=== PATIENT | male | born 1945 | race Caucasian/White ===

== ENCOUNTER 2019-11-08 07:13 | Emergency (ER) | payer MEDICARE, SELFPAY ==
[2019-11-08 07:22] VITALS: BP 133/67; PULSE 75; RESP 16; TEMP 36.8; O2SAT 92; BMI 26.9
--- NOTE | 2019-11-08 07:23 | ED_ITS ---
HPI - URI/Sore Throat General Chief Complaint: Upper Respiratory Symptoms Stated Complaint: cold, cough no sleep for 3 weeks Time Seen by Provider: 11/08/19 07:16 Source: patient Mode of arrival: Ambulatory Limitations: no limitations History of Present Illness HPI Narrative: 74-year-old male nonsmoker with history of hypertension presents with a chief complaint about 3 weeks worth cough which has got to the point where he has trouble sleeping period he has had episodes of subjective fever but nothing persistent or measured. He does complain of some runny nose and nasal congestion. He denies any nausea, vomiting or diarrhea. He denies body aches or joint pain. His has similar symptoms. He does take lisinopril but he has taken it for at least 10 years with no change in dosing MD Complaint: fever, cough, rhinorrhea and nasal congestion Onset (ago): week(s) Duration: constant Severity: moderate Relieving factors: nothing Exacerbating factors: nothing Description of mucous: clear Able to tolerate fluids by mouth: Yes Context: sick contacts Treatments prior to arrival: cold medicine Related Data Previous Rx's Medication Instructions Recorded doxycycline monohydrate 100 mg PO BID 10 Days #20 cap 11/08/19 promethazine-codeine 5 ml PO Q4-6H PRN #473 ml 11/08/19 Allergies Allergy/AdvReac Type Severity Reaction Status Date / Time No Known Drug Allergies Allergy Verified 11/08/19 07:22 Review of Systems Constitutional Constitutional: Denies chills, Denies fatigue, Denies fever(s), Denies frequent falls, Denies lethargy and Denies weakness Eyes Eyes: Denies change in vision, Denies eye discharge, Denies irritation and Denies loss of vision ENT Ears, Nose, Mouth, and Throat: Denies change in voice, Denies dizziness, Reports nasal congestion, Reports nasal discharge, Denies neck pain, Denies sore throat and Denies throat swelling Cardiovascular Cardiovascular: Denies chest pain, Denies irregular heart rhythm, Denies lightheadedness, Denies palpitations, Denies dyspnea, Denies dyspnea on exertion and Denies orthopnea Respiratory Respiratory: Reports cough, Denies dyspnea, Denies dyspnea on exertion and Denies wheezing Gastrointestinal Gastrointestinal: Denies abdominal pain, Denies change in bowel habits, Denies diarrhea, Denies nausea and Denies vomiting Genitourinary Genitourinary: Denies hematuria, Denies flank pain, Denies urinary incontinence and Denies urinary urgency Musculoskeletal Musculoskeletal: Denies back pain, Denies muscle weakness, Denies neck pain, Denies numbness and Denies tingling Integumentary/Breasts Skin/Breast: Denies pruritus, Denies erythema, Denies rash and Denies wounds Neurologic Neurologic: Denies behavioral changes, Denies confusion, Denies dizziness, Denies frequent falls, Denies loss of vision, Denies numbness, Denies tingling and Denies weakness Psychiatric Psychiatric: Denies anxiety, Denies behavioral changes, Denies confusion, Denies depression, Denies homicidal ideation and Denies suicidal ideation Endocrine Endocrine: Denies fatigue, Denies flushing and Denies palpitations Hematologic/Lymphatic Hematologic/Lymphatic: Denies easy bruising Allergic/Immunologic Allergic/Immunologic: Denies urticaria, Denies throat swelling and Denies wheezing Patient History Social History Smoking Status: Never smoker Smoking Status: Never smoker Exam Narrative Exam Narrative: GEN: 74-year-old male appears stated age, AOx3 and in mild distress EYES: Pupils are equal, round, and reactive to light and accommodation. Extraoccular muscles are intact bilaterally. There is no subconjunctival hemorrhage or exudate. ENT: Clear nasal drainage and congestion bilaterally, clear postnasal drip no pharyngeal erythema or exudate CHEST: Lungs are clear to auscultation bilaterally and free of wheezes, rales, or rhonchi. Heart rate is regular rhythm, there are no murmurs, clicks, rubs, or gallops. There is no chest wall tenderness. ABD: Abdomen is soft and nontender. There is no guarding or rebound. Bowel sounds are normal in all 4 quadrants. There is no mass or organomegaly. EXT: Full painless ROM of all extremities with no loss of sensation or strength. SKIN: Warm, pink, and dry. No erythema or rash Initial Vital Signs Initial Vital Signs: Vital Signs Temperature 98.3 F 11/08/19 07:22 Pulse Rate 75 11/08/19 07:22 Respiratory Rate 16 11/08/19 07:22 Blood Pressure 133/67 11/08/19 07:22 Pulse Oximetry 92 11/08/19 07:22 Course Orders Ordered: ED Orders 11/08/19 07:23 XR chest 2V Stat Vital Signs Vital signs: Vital Signs - 8 hr 11/08/19 07:22 11/08/19 07:58 Temperature 98.3 F Pulse Rate 75 63 Respiratory Rate 16 Blood Pressure 133/67 Pulse Oximetry 92 98 MDM - URI/Sore Throat Imaging Data Chest x-ray: Radiologist's Impression: [address] [place] [id number] XRay Report Signed Patient: Martin Guevara WMR#: [id number] : [id number]:[id number] Age/Sex: 74 / MDate of Service: 11/08/19 Loc: ED Accession Number: [id number] Procedure: XR chest 2V Ordering Provider: Junior Mcgovern D.O. PROCEDURE: XR CHEST 2V INDICATIONS: cough x3 weeks, feeling sick TECHNIQUE: 2 views of the chest were acquired. COMPARISON: None. FINDINGS: Surgical changes and devices: None. Lungs and pleura: Lungs are clear. No pleural effusions or pneumothorax. Minor biapical pleural plaquing. Mediastinum: Mediastinal contours are normal. Heart size is normal. Bones and chest wall: No suspicious bony abnormalities. 3 discrete ovoid densities project over the left lower chest, likely within the anterior chest wall soft tissue.. IMPRESSION: 1. No acute cardiopulmonary disease. 2. Radiodensities in the anterior left chest wall, potentially sebaceous cysts. Correlate clinically. Dictated by: Yesy Donovan M.D. on 11/08/2019 at 8:22 Approved by: Yesy Donovan M.D. on 11/08/2019 at 8:28 Discharge Plan Departure Patient Disposition: Home Clinical Impression: Atypical pneumonia Discharge Date/Time: 11/08/19 07:59 Instructions: DI for Atypical Pneumonia Activity Restrictions/Additional Instructions: *You have been diagnosed with [ atypical pneumonia ] *What to do: *Take medications as directed: Two prescriptions have been electronically transmitted to [facility] in [place]. Also, over the counter antihistamines will help dry your secretions and may help your cough. *Follow up with your primary care provider in 2-3 days, call for an appointment. Let them know you were seen in the Emergency Department and that we ask that you be seen in follow up *Return to ER if you should have any new, worsening or concerning symptoms Radiographic study has been interpreted by an emergency physician. The official diagnosis by radiology will be performed within the next 24 hours and should there be any change in outcome we will notify you of how to proceed. Prescriptions: New promethazine-codeine 6.25-10 mg/5 mL syrup 5 ml PO Q4-6H PRN (Reason: cough) Qty: 473 RF: 0 doxycycline monohydrate 100 mg capsule 100 mg PO BID 10 Days Qty: 20 RF: 0
[2019-11-08 07:58] VITALS: PULSE 63; O2SAT 98
== END 2019-11-08 07:59 | disposition home or self-care (01) ==
PROVIDERS: Emergency Provider Emergency Medicine
DX: J18.9 Pneumonia, unspecified organism (principal)
CPT/HCPCS: 71046; 99283

== ENCOUNTER 2019-12-30 09:44 | Emergency (ER) | payer MEDICARE, SELFPAY ==
[2019-12-30 09:50] VITALS: BP 125/66; PULSE 47; RESP 18; TEMP 36.4; O2SAT 99; BMI 26.9
--- NOTE | 2019-12-30 10:14 | ED.FALL ---
HPI - Fall General Chief Complaint: Fall Stated Complaint: fall this morning,light headed Time Seen by Provider: 12/30/19 10:02 Source: patient Mode of arrival: Ambulatory Limitations: no limitations History of Present Illness HPI Narrative: 74-year-old male. Not on anticoagulation is remodeling a house. He states that he stepped wrong today and fell through the floor the house falling forward hitting his head. He had no loss of consciousness however was lightheaded and dizzy afterwards. That has since resolved. No headache. Does have a cut above his left eye. Last tetanus shot was approximately 1 year ago. No other injuries reported from the event. Related Data Previous Rx's Medication Instructions Recorded promethazine-codeine 5 ml PO Q4-6H PRN #473 ml 11/08/19 Allergies Allergy/AdvReac Type Severity Reaction Status Date / Time No Known Drug Allergies Allergy Verified 12/30/19 09:50 Review of Systems Constitutional Constitutional: Denies fever(s), Denies frequent falls and Denies headache(s) Eyes Eyes: Denies blurry vision ENT Ears, Nose, Mouth, and Throat: Denies headache(s) Musculoskeletal Musculoskeletal: Denies back pain, Denies myalgias and Denies arthralgias Integumentary/Breasts Comments: Cut above left eye Neurologic Neurologic: Denies frequent falls and Denies headache(s) Comments: Dizziness after fall this has resolved Hematologic/Lymphatic Hematologic/Lymphatic: Denies easy bleeding and Denies easy bruising Patient History Surgical History No pertinent past surgical history (Acute) Social History Smoking Status: Never smoker Smoking Status: Never smoker Substance Use Type: does not use Exam Initial Vital Signs Initial Vital Signs: Vital Signs Temperature 97.5 F L 12/30/19 09:50 Pulse Rate 47 L 12/30/19 09:50 Respiratory Rate 18 12/30/19 09:50 Blood Pressure 125/66 12/30/19 09:50 Pulse Oximetry 99 12/30/19 09:50 Const General: cooperative, comfortable, well developed and well groomed HENMT Head: laceration Eyes Pupils: PERRL EOM: EOM intact bilaterally Resp Effort & Inspection: normal respiratory effort Cardio Rate: regular rate Skin Other: 2 cm laceration above left eye Neuro General: alert, awake and oriented x3 Cranial Nerves: CN's II-XI intact bilaterally Cognition: normal cognition Speech: speech normal Gait: normal gait Extrem General: normal to inspection and capillary refill normal Psych Appearance: grossly normal and well kempt Procedures Laceration Repair Laceration 1: Site: face Side (If applicable): left Size (cm): 3 Description: linear Depth: simple, single layer Local Anesthetic: with bicarb Amount of anesthesia used (mL): 4 Pre-repair: wound explored Skin layer closed with: nylon Size (cm): 4-0 Number of sutures: 5 Technique: simple, interrupted Scores GCS Kiersten coma scale eye opening: Spontaneous Kiersten coma scale verbal response: Orientated Kiersten coma scale motor response: Obey commands Kiersten coma scale total score: 15 Nexus Score for C-Spine Focal Neurologic deficit present: No Midline spinal tenderness present: No Altered level of conciousness present: No Intoxication present: No Distracting Injury Present: No Nexus Criteria for C-spine: 0 Course Orders Ordered: Discontinued Medications Bacitracin (Bacitracin) 1 applic TOP NOW ONE Stop: 12/30/19 10:37 Lidocaine/Sodium Bicarbonate (Buffered Lidocaine 10 Ml Syr) 10 ml INJ NOW ONE Stop: 12/30/19 10:18 Vital Signs Vital signs: Vital Signs - 8 hr 12/30/19 09:50 Temperature 97.5 F L Pulse Rate 47 L Respiratory Rate 18 Blood Pressure 125/66 Pulse Oximetry 99 MDM - Fall MDM Narrative Medical decision making narrative: Alert oriented x3, GCS 15, no headache, has a cut above his left eye otherwise has no other findings on his exam. The cut was closed as described above. He is not on anticoagulation. I feel we could hold on any radiologic studies for now. Patient was given care instructions and return precautions. He expressed understanding and agreement. Discharge Plan Departure Patient Disposition: Home Clinical Impression: Laceration Instructions: DI for Laceration Repair -- Simple Activity Restrictions/Additional Instructions: You can use topical antibiotic ointment. You can cover with a bandage as needed. The stitches do need to be removed in 7-10 days. You can also ice the area. Expect some swelling and or bruising around her left eye. Return to the emergency department for any new or worsening symptoms Prescriptions: No Action promethazine-codeine 6.25-10 mg/5 mL syrup 5 ml PO Q4-6H PRN (Reason: cough) Qty: 473 RF: 0
[2019-12-30] MEDS: LIDO 1%/SOD BICARB 8.4% (10ML) 10 ML SYRINGE INJ (10:20)
[2019-12-30] MEDS: BACITRACIN OINT 0.9 GM PCKT 1 APPLIC TOP (10:58)
== END 2019-12-30 11:03 | disposition home or self-care (01) ==
PROVIDERS: Emergency Provider Emergency Medicine
DX: S01.81XA Laceration without foreign body of other part of head, initial encounter (principal); W19.XXXA Unspecified fall, initial encounter
CPT/HCPCS: 12013; 99281; 99283

== ENCOUNTER 2021-10-27 06:30 | Day surgery (SDC) | payer MEDICARE, SELFPAY ==
--- NOTE | 2021-10-26 16:12 | PM.PREOP ---
Pre-operative Note COVID-19 COVID-19 status: Negative Interval Note History & Physical reviewed/Exam performed by Physician: Yes Changes to H&P: No H&P completed within 30 days and has changed as indicated here:: No symptoms. Lab not open to report Covid test so rapid testing done prior to surgery.
--- NOTE | 2021-10-26 16:12 | PM.OP.1 ---
Operative Date/Time/Diagnoses Date of procedure: 10/26/21 Time of procedure: 07:45 Procedure & Clinicians Procedure: Preoperative diagnoses: 1. Right complex surgery with use of capsular dye. 2. Mature or advanced nuclear sclerotic and cortical cataract with poor visibility of the anterior capsule increasing surgical risks of complications. 3. Hypertension 4. Hearing loss 5. Bradycardia 6. Acid reflux Postoperative diagnoses: 1.Right Complex surgery with use of capsular dye, 2. Placement of a posterior chamber intraocular lens implant. Surgeon: Carol Dee MD Complications: none Specimen: None Implant: DIBOO+19.5, -2.00 target Blood loss: None Anesthesia: Retrobulbar with monitored standby. Description of procedure: Dictated by: Carol Dee MD Post operative diagnoses: 1. Right cataract removed with use of capsular dye . 2. Placement of a posterior chamber intraocular lens. Procedure: Phacoemulsification with posterior chamber intraocular lens implant Surgeon: Carol Dee MD Blood loss: None Anesthesia: Retrobulbar with monitored standby Description of procedure: Patient has presented with decreased vision due to cataract which is affecting activities of daily living especially driving. 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 Patient-2.00 target is chosen after long discussion. The patient wants surgery to improve vision. He understands the extra risk of surgery during the COVID-19 epidemic and wished to proceed. The patient has tested negative for active COVID-19 virus within 72 hours of the procedure. Due to poor red reflex and diffuse cortical changes he will require capsular dye for this surgery. The patient was taken to the operating room and given IV sedation. A retrobulbar block consisting of 6 cc of 2% xylocaine without epinephrine mixed half and half with 0.5% Marcaine with 1 cc of hyaluronidase added is placed between the medial and lateral 1/3 of the inferior orbital rim. The eye is manually massaged for 30 sec, prepped using Betadine solution, and draped in the usual sterile fashion. Temporal approach was made, a 1 mm side-port incision was performed 90 degrees from the planned corneal wound. Phenylephrine 1.5% mixed with 1% xylocaine 0.2 cc was placed into the anterior chamber. An air bubble was placed and capsular blue dye was placed to improve visibility of the anterior capsule. The dye was irrigated out to reduce bubbles. Endocoat followed by Emilia was then placed. A 2.6 mm clear incision with a 2.6 mm blade was placed. A 360 degree capsulorrhexis style capsulotomy was then performed with a cystitome needle on a Healon greatly aided by the capsular dye. Hydrodelineation and hydrodissection were performed. The phacoemulsification unit is introduced, and sculpting used to groove the central lens. It is then removed in chopping mode. Epi nucleus is removed with epinuclear mode and irrigation aspiration was used to remove the peripheral cortex. The posterior capsule is polished. The intraocular lens is selected, inspected, power confirmed, and placed in the posterior chamber. The wound was stromally hydrated and tested for leaks, there was none and was left sutureless. Intracameral moxifloxacin 0.1 cc was placed into the anterior chamber. Kenalog 0.2 cc was placed in the superior subconjunctival space. A drop of antibiotic and was placed and the eye was patched and shielded. The patient was stable and returned to the recovery room in excellent condition. Dictated by: Carol Dee MD Copy to: [facility] Same procedure as scheduled: Yes
[2021-10-27] MEDS: PROPARACAINE 0.5% OPHTH SOL 2 DROPS EYE-OP (06:49)
[2021-10-27] MEDS: CATARACT EYE COMPOUND (10 DROPS/SYRINGE) 3 DROPS EYE-OP (06:50)
[2021-10-27 06:56] VITALS: BP 132/74; PULSE 54; RESP 16; TEMP 36.6; O2SAT 100; BMI 26.9
[2021-10-27 07:35] LABS: COVID19 -Nasal RAPID Negative (Negative)
[2021-10-27] MEDS: TRIAMCINOLONE 50 MG/5 ML VIAL INJ (08:11)
[2021-10-27] MEDS: PHENYLEPHRINE/LIDOCAINE VIAL (OR) 0.2 ML EYE-OP (08:11)
[2021-10-27] MEDS: HYALURONATE SODIUM 30 MG-10 MG/ML SYRINGES 1 BOX INTRAOCULA (08:11)
[2021-10-27] MEDS: MOXIFLOXACIN INJ 4 MG/0.8 ML VIAL 0.5 MG EYE-OP (08:11)
[2021-10-27] MEDS: ERYTHROMYCIN OPHTH 1 GM OINT 1 APPLIC EYE-RIGHT (08:11)
[2021-10-27] MEDS: LIDOCAINE 2% 4 ML, BUPIVACAINE 0.5% (PF) 4 ML, HYALURONIDASE 150 UNIT INJ (08:12)
[2021-10-27] MEDS: BALANCED SALT IRRIG SOLN NO.2 500 ML, EPINEPHrine 1 MG IRR (08:12)
[2021-10-27] MEDS: TRYPAN BLUE 0.5 ML SYRINGE INJ (08:12)
[2021-10-27 08:27] VITALS: BP 142/83; PULSE 50; RESP 16; TEMP 36.9; O2SAT 100
== END 2021-10-27 08:59 | disposition home or self-care (01) ==
PROVIDERS: Referring Provider Ophthalmology; Visit Provider Ophthalmology
PROC: (CPT 66984; principal; 2021-10-27 07:45)
DX: H25.811 Combined forms of age-related cataract, right eye (principal); I10 Essential (primary) hypertension; K21.9 Gastro-esophageal reflux disease without esophagitis; R00.1 Bradycardia, unspecified; E78.5 Hyperlipidemia, unspecified; Z20.822 Contact with and (suspected) exposure to COVID-19
CPT/HCPCS: 66984; 87635; J0171; J3301; J3470

== ENCOUNTER → 2021-11-29 10:09 | Outpatient (CLI) | payer MEDICARE, SELFPAY ==
[2021-11-29 12:12] LABS: COVID19 -Nasal RAPID Negative (Negative)
== END ==
PROVIDERS: Visit Provider Family Medicine Sleep Medicine
DX: Z20.822 Contact with and (suspected) exposure to COVID-19 (principal)
CPT/HCPCS: 87635; C9803

== ENCOUNTER 2021-12-01 06:37 | Day surgery (SDC) | payer MEDICARE, SELFPAY ==
--- NOTE | 2021-11-30 19:56 | PM.PREOP ---
Pre-operative Note COVID-19 COVID-19 status: Negative Criteria for continued procedure: Expected advancement of disease process, Possibility delay results in more complex future surgery or treatment, Delay expected to result in less-positive ultimate med/surg outcome and Non-surgical alternatives not available or appropriate per current SOC Interval Note History & Physical reviewed/Exam performed by Physician: No Changes to H&P: No
--- NOTE | 2021-11-30 19:57 | PM.OP.1 ---
Operative Date/Time/Diagnoses Date of procedure: 12/01/21 Time of procedure: 12:15 Procedure & Clinicians Procedure: Preoperative diagnoses: 1. Complex Left nuclear sclerotic and cortical cataract. 2. Bradycardia with possible need for pacemaker 3. Hearing loss Postoperative diagnoses: 1. ComplexCataract removed by phacoemulsification with placement of posterior chamber intraocular lens. Use of capsular dye Procedure: ComplexPhacoemulsification with posterior chamber intraocular lens implant Surgeon: Carol Dee MD Complications: None Specimen: None Implant: DIBOO+19.5 myopic target of -150. Blood loss: None Anesthesia: Retrobulbar with monitored standby Description of procedure: Patient presents with a complaint of decreased vision due to cataract which is affecting activities of daily living with problems with night driving. The patient wants surgery to improve vision. His surgery has been delayed due to the COVID-19 epidemic and his cataracts now increased. He has since had successful right cataract surgery in the imbalance is causing him difficulty with driving and walking. Due to the diffuse cataract he will need capsular dye for safety. He understands the extra risk of surgery during the COVID-19 epidemic and wishes to proceed. They have tested negative for active virus within 72 hours of the procedure. The patient was taken to the operating room and given IV sedation. A retrobulbar block consisting of 6 cc of 2% xylocaine without epinephrine mixed half and half with 0.5% Marcaine with 1 cc of hyaluronidase added is placed between the medial and lateral 1/3 of the inferior orbital rim. The eye is manually massaged for 30 sec, prepped using Betadine solution, and draped in the usual sterile fashion. Temporal approach was made, a 1 mm side-port incision was made 90? from the proposed clear corneal incision position. Phenylephrine 1.5% mixed with 1% xylocaine 0.2 cc was placed into the anterior chamber an air bubble was placed followed by capsular dye. The extra dye was then irrigated out with BSS followed by Healon was then placed. A 2.6 mm clear incision with a 2.6 mm blade was placed. A 360 degree capsulorrhexis style capsulotomy was then performed with a cystitome needle on a Healon greatly aided by the capsular dye Hydrodelineation and hydrodissection were performed. The phacoemulsification unit is introduced, and sculpting notice used to groove the central lens. It is then removed in chopping mode. Epi nucleus is removed with epinuclear mode and irrigation aspiration was used to remove the peripheral cortex. The posterior capsule is polished. The intraocular lens is selected, inspected, power confirmed, and placed in the posterior chamber. The wound was stromally hydrated and tested for leaks, there was none and it was left sutureless. Intracameral moxifloxacin 0.1 cc was placed into the anterior chamber. Kenalog 0.2 cc was placed in the superior subconjunctival space. A drop of antibiotic and was placed and the eye was patched and shielded. The patient was stable and returned to the recovery room in excellent condition. Dictated by: Carol Dee MD Copy to: [facility] Same procedure as scheduled: Yes
[2021-12-01 11:20] VITALS: BP 143/78; PULSE 45; RESP 16; TEMP 36.4; O2SAT 100; BMI 28.2
[2021-12-01] MEDS: PROPARACAINE 0.5% OPHTH SOL 2 DROPS EYE-OP (11:30)
[2021-12-01] MEDS: CATARACT EYE COMPOUND (10 DROPS/SYRINGE) 3 DROPS EYE-OP (11:35)
[2021-12-01 11:57] VITALS: BP 144/71; PULSE 37; RESP 18; TEMP 36.4; O2SAT 100
--- NOTE | 2021-12-01 11:59 | SUR.PREOP ---
Pt sitting in wheelchair, suddenly c/o feeling dizzy and asked to lay down- see VS on flow sheet, LR started, CBG 85, feelings were self limiting. Pt stated he get dizzy a lot and usually just lays down, has been told he needs a pacemaker and has an appt for it in December.
--- NOTE | 2021-12-01 12:06 | SUR.PREOP ---
Addendum, pt also placed on moniter, Showed SB with rare PAC and rare PVC
[2021-12-01] MEDS: LIDOCAINE 2% 4 ML, BUPIVACAINE 0.5% (PF) 4 ML, HYALURONIDASE 150 UNIT INJ (14:08)
[2021-12-01] MEDS: HYALURONATE SODIUM 30 MG-10 MG/ML SYRINGES 1 BOX INTRAOCULA (14:19)
[2021-12-01] MEDS: ERYTHROMYCIN OPHTH 1 GM OINT 1 APPLIC EYE-LEFT (14:19)
[2021-12-01] MEDS: MOXIFLOXACIN INJ 4 MG/0.8 ML VIAL 0.5 MG EYE-OP (14:20)
[2021-12-01] MEDS: PHENYLEPHRINE/LIDOCAINE VIAL (OR) 0.2 ML EYE-OP (14:20)
[2021-12-01] MEDS: TRIAMCINOLONE 50 MG/5 ML VIAL INJ (14:20)
[2021-12-01] MEDS: TRYPAN BLUE 0.5 ML SYRINGE INJ (14:21)
[2021-12-01] MEDS: BALANCED SALT IRRIG SOLN NO.2 500 ML, EPINEPHrine 1 MG IRR (14:21)
[2021-12-01 15:29] VITALS: BP 144/80; PULSE 46; RESP 18; TEMP 36.6
== END 2021-12-01 15:05 | disposition home or self-care (01) ==
LOC: OR 06:39
PROVIDERS: Referring Provider Ophthalmology; Visit Provider Ophthalmology
PROC: (CPT 66984; principal; 2021-12-01 13:15)
DX: H25.812 Combined forms of age-related cataract, left eye (principal); R00.1 Bradycardia, unspecified
CPT/HCPCS: 66984; 82962; J0171; J2704; J3301; J3470

== ENCOUNTER → 2021-12-03 10:23 | Outpatient (CLI) | payer MEDICARE, SELFPAY ==
[2021-12-03 12:20] LABS: TSH w/ Reflex to FT4 3.25 uIU/mL (0.47-4.68)
== END ==
PROVIDERS: Referring Provider Internal Medicine Cardiovascular Disease; Visit Provider Internal Medicine Cardiovascular Disease
DX: R00.1 Bradycardia, unspecified (principal)
CPT/HCPCS: 36415; 84443

== ENCOUNTER 2022-03-30 11:15 | Outpatient (RCR) | payer MEDICARE, SELFPAY ==
--- NOTE | 2022-02-07 17:48 | PT.OIE ---
Current Diagnoses Unilateral primary osteoarthritis, right knee (02/07/22) Past Medical History (Last Reviewed 11/08/19 @ 07:25 by Junior Mcgovern DO) No pertinent past surgical history Past Surgical History (Last Reviewed 12/30/19 @ 10:42 by Jose Alberto Grijalva DO) No pertinent past surgical history Visit Care Team Role Provider Type Vida Lozoya PA-C Attending Provider Non-Staff Family Provider Primary Care Provider Referring Provider Specialty: General Surgery Address: [address] [place] [address], [id number] Email: Physical Therapy Initial Evaluation PT-OP-A Visit Information Start: 02/03/22 18:04 Freq: Status: Active Protocol: Document 02/07/22 15:45 [facility] (Rec: 02/07/22 18:07 [facility] [id number]) Out-Patient Physical Therapy Visit Information Visit Information Visit Type Initial Evaluation Visit Note 11/08 Visit Start Time 16:52 Visit Stop Time 17:34 Total Visit Minutes 42 Visit Number 1 Number of ACDS BLOCK 1 OPERATOR Visits 0 PT-OP-B Current Condition Start: 02/03/22 18:04 Freq: Status: Active Protocol: Document 02/07/22 15:45 [facility] (Rec: 02/07/22 18:07 [facility] [id number]) Current Condition History of Current Condition Onset Date 01/28/22 Current Complaints R TKA History of Current Condition Pt reports TKA on 01/28/22. He has been compliant w/HEP at home and had OP procedure. He walked in without AD today. Pt notes he had R TKA d/t overall wear and tear. Pt has history of partial L TKA w/good recovery, buth otherwise no other joint issues. Pt reprots he has a low HR and gets down to the high 30s and has some dizziness. He is working w/a construction trades teacher on this. 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, back to skiing (downhill), return to walking dog (1-2 miles) without pain, be able to stand extended for playing klein PT-OP-C Subjective Start: 02/03/22 18:04 Freq: Status: Active Protocol: Document 02/07/22 15:45 [facility] (Rec: 02/07/22 18:07 [facility] [id number]) Patient Questionnaires Lower Extremity Functional Scale LEFS Score 43/80 OP-PT Pain Assessment Location R knee Pain Location Details ant knee Scale Used discomfort Frequency Intermittent Pain Aggravating Factors Walking,Bending Other Pain Aggravating Factors sit<>stand Pain Alleviating Factors Cold PT-OP-F Manual Assessment Start: 02/03/22 18:04 Freq: Status: Active Protocol: Document 02/07/22 15:45 [facility] (Rec: 02/07/22 18:07 [facility] [id number]) Manual Assessments Soft Tissue Assessment Soft Tissue Mobility Assessment Pt has bruising on med quad and Add surface; significant swelling of RLE to ankle PT-OP-G Mobility & Gait Start: 02/03/22 18:04 Freq: Status: Active Protocol: Document 02/07/22 15:45 [facility] (Rec: 02/07/22 18:07 [facility] [id number]) OP Gait Assessment Comments Gait Comments Pt amb w/dec stance time and dec ext on RLE but amb w/o AD PT-OP-K Range of Motion Start: 02/03/22 18:04 Freq: Status: Active Protocol: Document 02/07/22 15:45 [facility] (Rec: 02/07/22 18:07 [facility] [id number]) Knee Goniometric Range of Motion Knee Right Flexion Active (degrees) 103 Extension Active (degrees) 12 Left Flexion Active (degrees) 125 Extension Active (degrees) 3 PT-OP-M Strength Start: 02/03/22 18:04 Freq: Status: Active Protocol: Document 02/07/22 15:45 [facility] (Rec: 02/07/22 18:07 [facility] [id number]) Hip Strength Hip Manual Muscle Testing Right Flexion (L2) 3+ Fair+ Abduction 4- Good- External Rotation 3+ Fair+ Internal Rotation 4 Good Left Flexion (L2) 4 Good Abduction 4+ Good+ Adduction 4- Good- External Rotation 4 Good Internal Rotation 5 Normal Knee Strength Knee Manual Muscle Testing Right Flexion (S2) 4- Good- Extension (L3) 3+ Fair+ Left Flexion (S2) 4+ Good+ Extension (L3) 5 Normal Ankle/Foot Strength Ankle and Foot Manual Muscle Testing Right Dorsiflexion (L4) 5 Normal Plantarflexion (S1) 4+ Good+ Left Dorsiflexion (L4) 5 Normal Plantarflexion (S1) 5 Normal Comments seated testing B PT-OP-Q Treatments Start: 02/03/22 18:04 Freq: Status: Active Protocol: Document 02/07/22 15:45 [facility] (Rec: 02/07/22 18:07 [facility] [id number]) Therapeutic Exercises Supine Exercises stretch Supine Exercise Name HS Side right Reps/Minutes 30 sec ext Supine Exercise Name hang Side right Reps/Minutes 1 min heel slides Supine Exercise Name w/5 APs at end Side right Reps/Minutes 5 quad set Supine Exercise Name w/facilitation into towel Side right Reps/Minutes 5sec x5 Self-Care/Home Management Treatment Education Other Education encouraged pt to do frequent small bouts of activity including walking every hr. Edu to ice to dec swelling,e du for prop of leg in ext position vs flexed position. edu and encouragement to follow MD orders for compression stockings, edu to pt to start small walks gradually with just a partial block to start PT-OP-T Assessment and Plan Start: 02/03/22 18:04 Freq: Status: Active Protocol: Document 02/07/22 15:45 [facility] (Rec: 02/07/22 18:07 [facility] [id number]) Physical Therapy Assessment Rehab Potential Rehabilitation Potential Excellent Evaluation Complexity Number of Personal Factors/Comorbidities 1-2 Number of Body Systems Impaired 4 or More Clinical Presentation at Evaluation Stable Impairments Impairments Activity Tolerance,Balance, Edema,Functional Activities, Functional Mobility,Gait,Pain, Posture,ROM,Soft Tissue Mobility,Strength,Transfers Goals stairs Short Term Goal (STG) Pt will be able to ascend stairs reciprocally w/o rail. STG Duration 03/09/22 Communication Assistant Goal (LTG) Pt will be able to descend stairs reciprocally w/o rail. LTG Duration 04/09/22 activities Short Term Goal (STG) Pt will be able to return to 1 mile walks w/o inc R knee pain and be able to stand 30 sec for playing his klein. STG Duration 03/11/22 Group Home Goal (LTG) Pt will be able to get up/down from ground w/o pain allowing him to start doing some home repairs and house work w/o inc pain. LTG Duration 04/09/22 strength Short Term Goal (STG) Pt will be indep w/HEP STG Duration 03/09/22 Group Home Goal (LTG) Pt will score 5/5 for B LE MMT to show improved LE strength and stability allowing for pt to return to high level work he typically does. LTG Duration 04/09/22 ROM Impairment 12-103 Short Term Goal (STG) pt will have improved R knee ROM to 5-115. STG Duration 03/09/22 Communication Assistant Goal (LTG) Pt will have improved R knee ROM to 0-125 to allow for ability to go up/down stairs and to normalize gait pattern w/o pain. LTG Duration 04/09/22 Assessment Summary Assessment Pt presents 10 days s/p R TKA with good pain control and excellent progress with ROM at this time. Pt is amb w/mild gait deviations w/o AD at this time and has been compliant w/ exercsies at home , but not compliant w/ compression stockings due to significant disomfort when wearing them. He has significant RLE swelling and is most limited in R knee ext. 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 Pt would benefit from skilled PT to work towards these goals and return pt to his typical active lifestyle. Physical Therapy Plan Frequency and Duration Frequency of Treatment 2x/Week Duration of Treatment 2 months Plan of Care Start Date 02/07/22 Plan of Care End Date 04/09/22 Therapeutic Interventions Therapeutic Interventions Aquatic Therapy,Balance Training,Gait Training,Home Exercise Program,Joint Mobilizations,Manual Therapy, Neuromuscular Re-education, Patient/Caregiver Education, Self-Care/Home Management,Soft Tissue Mobilization,Taping, Therapeutic Activities, Therapeutic Exercises Modalities Cold Pack/Ice Massage,Electric Stimulation,Hot Packs Next Visit Focus/Plan Next Note Type Treatment Note Next Visit Plan bike, leg press, sit to stands for home, TKE, standing knee flex, start 4 in step ups R, manual to calf and HS
--- NOTE | 2022-02-07 17:48 | PT.OPPOC ---
Physical, Occupational & Speech Therapy At [facility] Current Diagnoses Unilateral primary osteoarthritis, right knee (02/07/22) Visit Care Team Role Provider Type Vida Lozoya PA-C Attending Provider Non-Staff Family Provider Primary Care Provider Referring Provider Specialty: General Surgery Address: [address] [place] [address], [phone] Email: Plan Of Care PT-OP-T Assessment and Plan Start: 02/03/22 18:04 Freq: Status: Active Protocol: Document 02/07/22 15:45 [facility] (Rec: 02/07/22 18:07 [facility] [id number]) Physical Therapy Assessment Rehab Potential Rehabilitation Potential Excellent Evaluation Complexity Number of Personal Factors/Comorbidities 1-2 Number of Body Systems Impaired 4 or More Clinical Presentation at Evaluation Stable Impairments Impairments Activity Tolerance,Balance, Edema,Functional Activities, Functional Mobility,Gait,Pain, Posture,ROM,Soft Tissue Mobility,Strength,Transfers Goals stairs Short Term Goal (STG) Pt will be able to ascend stairs reciprocally w/o rail. STG Duration 03/09/22 Optical Glass Inspector Goal (LTG) Pt will be able to descend stairs reciprocally w/o rail. LTG Duration 04/09/22 activities Short Term Goal (STG) Pt will be able to return to 1 mile walks w/o inc R knee pain and be able to stand 30 sec for playing his klein. STG Duration 03/11/22 [facility] Goal (LTG) Pt will be able to get up/down from ground w/o pain allowing him to start doing some home repairs and house work w/o inc pain. LTG Duration 04/09/22 strength Short Term Goal (STG) Pt will be indep w/HEP STG Duration 03/09/22 Optical Glass Inspector Goal (LTG) Pt will score 5/5 for B LE MMT to show improved LE strength and stability allowing for pt to return to high level work he typically does. LTG Duration 04/09/22 ROM Impairment 12-103 Short Term Goal (STG) pt will have improved R knee ROM to 5-115. STG Duration 03/09/22 Optical Glass Inspector Goal (LTG) Pt will have improved R knee ROM to 0-125 to allow for ability to go up/down stairs and to normalize gait pattern w/o pain. LTG Duration 04/09/22 Assessment Summary Assessment Pt presents 10 days s/p R TKA with good pain control and excellent progress with ROM at this time. Pt is amb w/mild gait deviations w/o AD at this time and has been compliant w/ exercsies at home , but not compliant w/ compression stockings due to significant disomfort when wearing them. He has significant RLE swelling and is most limited in R knee ext. 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 Pt would benefit from skilled PT to work towards these goals and return pt to his typical active lifestyle. Physical Therapy Plan Frequency and Duration Frequency of Treatment 2x/Week Duration of Treatment 2 months Plan of Care Start Date 02/07/22 Plan of Care End Date 04/09/22 Therapeutic Interventions Therapeutic Interventions Aquatic Therapy,Balance Training,Gait Training,Home Exercise Program,Joint Mobilizations,Manual Therapy, Neuromuscular Re-education, Patient/Caregiver Education, Self-Care/Home Management,Soft Tissue Mobilization,Taping, Therapeutic Activities, Therapeutic Exercises Modalities Cold Pack/Ice Massage,Electric Stimulation,Hot Packs Next Visit Focus/Plan Next Note Type Treatment Note Next Visit Plan bike, leg press, sit to stands for home, TKE, standing knee flex, start 4 in step ups R, manual to calf and HS Plan of Care Dates Plan of Care Start Date 02/07/22 Plan of Care End Date 04/09/22 Electronically Signed by: Luz Maria Isaac, PT 02/09/22 0795 Please Sign and Return: I have reviewed this Plan of Care and certify that the skilled therapy services above are required to meet the patient?s needs. Physician Signature Date Printed Name and Credentials Clinical Instructor Signature Printed Name and Credentials
--- NOTE | 2022-02-09 09:31 | PT.OTN ---
Current Diagnoses Unilateral primary osteoarthritis, right knee (02/09/22) Physical Therapy Treatment Note PT-OP-A Visit Information Start: 02/03/22 18:04 Freq: Status: Active Protocol: Document 02/09/22 08:26 [facility] (Rec: 02/09/22 09:31 [facility] [id number]) Out-Patient Physical Therapy Visit Information Visit Information Visit Type Treatment Note Visit Note 12/09 Visit Start Time 08:19 Visit Stop Time 09:02 Total Visit Minutes 43 Visit Number 2 Number of PATENT LITIGATION ASSOCIATE Visits 0 PT-OP-B Current Condition Start: 02/03/22 18:04 Freq: Status: Active Protocol: Document 02/07/22 15:45 [facility] (Rec: 02/07/22 18:07 [facility] [id number]) Current Condition History of Current Condition Onset Date 01/28/22 Current Complaints R TKA History of Current Condition Pt reports TKA on 01/28/22. He has been compliant w/HEP at home and had OP procedure. He walked in without AD today. Pt notes he had R TKA d/t overall wear and tear. Pt has history of partial L TKA w/good recovery, buth otherwise no other joint issues. Pt reprots he has a low HR and gets down to the high 30s and has some dizziness. He is working w/a senior logistics manager on this. 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 He has more trouble breathing in AM so is feeling mild SOB and lightheadness. PT-OP-F Manual Assessment Start: 02/03/22 18:04 Freq: Status: Active Protocol: Document 02/07/22 15:45 [facility] (Rec: 02/07/22 18:07 [facility] [id number]) Manual Assessments Soft Tissue Assessment Soft Tissue Mobility Assessment Pt has bruising on med quad and Add surface; significant swelling of RLE to ankle PT-OP-G Mobility & Gait Start: 02/03/22 18:04 Freq: Status: Active Protocol: Document 02/07/22 15:45 [facility] (Rec: 02/07/22 18:07 [facility] [id number]) OP Gait Assessment Comments Gait Comments Pt amb w/dec stance time and dec ext on RLE but amb w/o AD PT-OP-K Range of Motion Start: 02/03/22 18:04 Freq: Status: Active Protocol: Document 02/07/22 15:45 [facility] (Rec: 02/07/22 18:07 [facility] [id number]) Knee Goniometric Range of Motion Knee Right Flexion Active (degrees) 103 Extension Active (degrees) 12 Left Flexion Active (degrees) 125 Extension Active (degrees) 3 PT-OP-M Strength Start: 02/03/22 18:04 Freq: Status: Active Protocol: Document 02/07/22 15:45 [facility] (Rec: 02/07/22 18:07 [facility] [id number]) Hip Strength Hip Manual Muscle Testing Right Flexion (L2) 3+ Fair+ Abduction 4- Good- External Rotation 3+ Fair+ Internal Rotation 4 Good Left Flexion (L2) 4 Good Abduction 4+ Good+ Adduction 4- Good- External Rotation 4 Good Internal Rotation 5 Normal Knee Strength Knee Manual Muscle Testing Right Flexion (S2) 4- Good- Extension (L3) 3+ Fair+ Left Flexion (S2) 4+ Good+ Extension (L3) 5 Normal Ankle/Foot Strength Ankle and Foot Manual Muscle Testing Right Dorsiflexion (L4) 5 Normal Plantarflexion (S1) 4+ Good+ Left Dorsiflexion (L4) 5 Normal Plantarflexion (S1) 5 Normal Comments seated testing B PT-OP-Q Treatments Start: 02/03/22 18:04 Freq: Status: Active Protocol: Document 02/09/22 08:26 [facility] (Rec: 02/09/22 09:31 [facility] [id number]) Cardio Equipment Bicycle (Upright) Duration (Minutes) 5 Resistance 3 Seat Position 9 Gym Equipment Shuttle Recovery Bilateral Squats Resistance 50#, 75# Shuttle Recovery Platform Stable Reps/Time 2x15 Therapeutic Exercises Standing Exercises step up Side right Equipment Used 4 in w/rail Reps/Minutes 12 TKE Side right Equipment Used lvl 1 Reps/Minutes 20 heel raises Side bilateral Reps/Minutes 20 Manual Therapy Treatment Soft Tissue Mobilization lower leg Body Location calf & peroneals Mobilization Type Rolling Intensity/Depth Moderate Body Position Supine Self-Care/Home Management Treatment Activities Self-Care/Home Management Activities BP on bike 165/80; DE:68 O2:97 % PT-OP-T Assessment and Plan Start: 02/03/22 18:04 Freq: Status: Active Protocol: Document 02/09/22 08:26 [facility] (Rec: 02/09/22 09:31 [facility] [id number]) Physical Therapy Assessment Goals stairs Short Term Goal (STG) Pt will be able to ascend stairs reciprocally w/o rail. STG Duration 03/09/22 Heel Coverer Goal (LTG) Pt will be able to descend stairs reciprocally w/o rail. LTG Duration 04/09/22 activities Short Term Goal (STG) Pt will be able to return to 1 mile walks w/o inc R knee pain and be able to stand 30 sec for playing his klein. STG Duration 03/11/22 Residential Goal (LTG) Pt will be able to get up/down from ground w/o pain allowing him to start doing some home repairs and house work w/o inc pain. LTG Duration 04/09/22 strength Short Term Goal (STG) Pt will be indep w/HEP STG Duration 03/09/22 Residential Goal (LTG) Pt will score 5/5 for B LE MMT to show improved LE strength and stability allowing for pt to return to high level work he typically does. LTG Duration 04/09/22 ROM Impairment 12-103 Short Term Goal (STG) pt will have improved R knee ROM to 5-115. STG Duration 03/09/22 Heel Coverer Goal (LTG) Pt will have improved R knee ROM to 0-125 to allow for ability to go up/down stairs and to normalize gait pattern w/o pain. LTG Duration 04/09/22 Assessment Summary Assessment Pt did well with exercises today and SOB was more notable in standing/seated vs supine position and that info given to pt and . He is working w/senior logistics manager to solve SOB issues as this is not new. He tolearted all exercises w/o c/ o signfiicant pain and noted relief w/manual. Physical Therapy Plan Frequency and Duration Frequency of Treatment 2x/Week Duration of Treatment 2 months Plan of Care Start Date 02/07/22 Plan of Care End Date 04/09/22 Next Visit Focus/Plan Next Note Type Treatment Note Next Visit Plan cont to advance ROM of RLE and strength, manual to calf and HS
--- NOTE | 2022-02-15 09:04 | PT.OTN ---
Current Diagnoses Unilateral primary osteoarthritis, right knee (02/15/22) Physical Therapy Treatment Note PT-OP-A Visit Information Start: 02/03/22 18:04 Freq: Status: Active Protocol: Document 02/15/22 07:29 [facility] (Rec: 02/15/22 09:04 [facility] [id number]) Out-Patient Physical Therapy Visit Information Visit Information Visit Type Treatment Note Visit Note 01/06 Visit Start Time 08:18 Visit Stop Time 08:58 Total Visit Minutes 40 Visit Number 3 Number of DIVERSIFIED CROPS FARMER Visits 0 PT-OP-B Current Condition Start: 02/03/22 18:04 Freq: Status: Active Protocol: Document 02/07/22 15:45 [facility] (Rec: 02/07/22 18:07 [facility] [id number]) Current Condition History of Current Condition Onset Date 01/28/22 Current Complaints R TKA History of Current Condition Pt reports TKA on 01/28/22. He has been compliant w/HEP at home and had OP procedure. He walked in without AD today. Pt notes he had R TKA d/t overall wear and tear. Pt has history of partial L TKA w/good recovery, buth otherwise no other joint issues. Pt reprots he has a low HR and gets down to the high 30s and has some dizziness. He is working w/a craft worker on this. 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 He rports he was hurting last night though after the walking . pt saw who said he was a week ahead and was pleased w/ progress. Pt reports swelling is better PT-OP-F Manual Assessment Start: 02/03/22 18:04 Freq: Status: Active Protocol: Document 02/07/22 15:45 [facility] (Rec: 02/07/22 18:07 [facility] [id number]) Manual Assessments Soft Tissue Assessment Soft Tissue Mobility Assessment Pt has bruising on med quad and Add surface; significant swelling of RLE to ankle PT-OP-G Mobility & Gait Start: 02/03/22 18:04 Freq: Status: Active Protocol: Document 02/07/22 15:45 [facility] (Rec: 02/07/22 18:07 [facility] [id number]) OP Gait Assessment Comments Gait Comments Pt amb w/dec stance time and dec ext on RLE but amb w/o AD PT-OP-K Range of Motion Start: 02/03/22 18:04 Freq: Status: Active Protocol: Document 02/07/22 15:45 [facility] (Rec: 02/07/22 18:07 [facility] [id number]) Knee Goniometric Range of Motion Knee Right Flexion Active (degrees) 103 Extension Active (degrees) 12 Left Flexion Active (degrees) 125 Extension Active (degrees) 3 PT-OP-M Strength Start: 02/03/22 18:04 Freq: Status: Active Protocol: Document 02/07/22 15:45 [facility] (Rec: 02/07/22 18:07 [facility] [id number]) Hip Strength Hip Manual Muscle Testing Right Flexion (L2) 3+ Fair+ Abduction 4- Good- External Rotation 3+ Fair+ Internal Rotation 4 Good Left Flexion (L2) 4 Good Abduction 4+ Good+ Adduction 4- Good- External Rotation 4 Good Internal Rotation 5 Normal Knee Strength Knee Manual Muscle Testing Right Flexion (S2) 4- Good- Extension (L3) 3+ Fair+ Left Flexion (S2) 4+ Good+ Extension (L3) 5 Normal Ankle/Foot Strength Ankle and Foot Manual Muscle Testing Right Dorsiflexion (L4) 5 Normal Plantarflexion (S1) 4+ Good+ Left Dorsiflexion (L4) 5 Normal Plantarflexion (S1) 5 Normal Comments seated testing B PT-OP-Q Treatments Start: 02/03/22 18:04 Freq: Status: Active Protocol: Document 02/15/22 07:29 [facility] (Rec: 02/15/22 09:04 [facility] [id number]) Cardio Equipment Bicycle (Upright) Duration (Minutes) 5 Resistance 7 Seat Position 9 Gym Equipment Shuttle Recovery Bilateral Squats Resistance 87# Shuttle Recovery Platform Stable Reps/Time 2x15 Therapeutic Exercises Standing Exercises sit to stand Side bilateral Reps/Minutes 10 Comments trying to get BLEs under self evenly stretch Standing Exercise Name 1.calf on step 2. HS on step Side bilateral Reps/Minutes 30 sec step up Side right Equipment Used 4 in w/o rail Reps/Minutes 12 TKE Side right Equipment Used lvl 2 Reps/Minutes 20 heel raises Standing Exercise Name on step Side bilateral Reps/Minutes 20 Manual Therapy Treatment Soft Tissue Mobilization thigh Body Location ITB & HS R Mobilization Type Rolling Intensity/Depth Moderate Body Position Supine lower leg Body Location calf & peroneals R Mobilization Type Rolling Intensity/Depth Moderate Body Position Supine PT-OP-T Assessment and Plan Start: 02/03/22 18:04 Freq: Status: Active Protocol: Document 02/15/22 07:29 [facility] (Rec: 02/15/22 09:04 [facility] [id number]) Physical Therapy Assessment Goals stairs Short Term Goal (STG) Pt will be able to ascend stairs reciprocally w/o rail. STG Duration 03/09/22 Photocomposing Machine Operator Goal (LTG) Pt will be able to descend stairs reciprocally w/o rail. LTG Duration 04/09/22 activities Short Term Goal (STG) Pt will be able to return to 1 mile walks w/o inc R knee pain and be able to stand 30 sec for playing his klein. STG Duration 03/11/22 Photocomposing Machine Operator Goal (LTG) Pt will be able to get up/down from ground w/o pain allowing him to start doing some home repairs and house work w/o inc pain. LTG Duration 04/09/22 strength Short Term Goal (STG) Pt will be indep w/HEP STG Duration 03/09/22 Skilled Nursing Goal (LTG) Pt will score 5/5 for B LE MMT to show improved LE strength and stability allowing for pt to return to high level work he typically does. LTG Duration 04/09/22 ROM Impairment 12-103 Short Term Goal (STG) pt will have improved R knee ROM to 5-115. STG Duration 03/09/22 Photocomposing Machine Operator Goal (LTG) Pt will have improved R knee ROM to 0-125 to allow for ability to go up/down stairs and to normalize gait pattern w/o pain. LTG Duration 04/09/22 Assessment Summary Assessment Pt did well with progression of exercises today but does requuire cues for full ext w/ exercises. Swelling is better today in RLE. Physical Therapy Plan Frequency and Duration Frequency of Treatment 2x/Week Duration of Treatment 2 months Plan of Care Start Date 02/07/22 Plan of Care End Date 04/09/22 Next Visit Focus/Plan Next Note Type Treatment Note Next Visit Plan cont to advance ROM of RLE and strength, manual to calf and HS
--- NOTE | 2022-02-17 10:39 | PT.OTN ---
Current Diagnoses Unilateral primary osteoarthritis, right knee (02/17/22) Physical Therapy Treatment Note PT-OP-A Visit Information Start: 02/03/22 18:04 Freq: Status: Active Protocol: Document 02/17/22 09:45 [facility] (Rec: 02/17/22 10:36 [facility] [id number]) Out-Patient Physical Therapy Visit Information Visit Information Visit Type Treatment Note Visit Note 02/06 Visit Start Time 09:45 Visit Stop Time 10:30 Total Visit Minutes 45 Visit Number 4 Number of HUMAN RESOURCES TECHNICIAN Visits 1 PT-OP-B Current Condition Start: 02/03/22 18:04 Freq: Status: Active Protocol: Document 02/07/22 15:45 [facility] (Rec: 02/07/22 18:07 [facility] [id number]) Current Condition History of Current Condition Onset Date 01/28/22 Current Complaints R TKA History of Current Condition Pt reports TKA on 01/28/22. He has been compliant w/HEP at home and had OP procedure. He walked in without AD today. Pt notes he had R TKA d/t overall wear and tear. Pt has history of partial L TKA w/good recovery, buth otherwise no other joint issues. Pt reprots he has a low HR and gets down to the high 30s and has some dizziness. He is working w/a instrumentation designer on this. 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 He as unable to walk and was in horrible pain throughout the back of his leg. He would like to take it easy today to avoid further back tracking as he has not been able to do much since Monday. PT-OP-F Manual Assessment Start: 02/03/22 18:04 Freq: Status: Active Protocol: Document 02/07/22 15:45 [facility] (Rec: 02/07/22 18:07 [facility] [id number]) Manual Assessments Soft Tissue Assessment Soft Tissue Mobility Assessment Pt has bruising on med quad and Add surface; significant swelling of RLE to ankle PT-OP-G Mobility & Gait Start: 02/03/22 18:04 Freq: Status: Active Protocol: Document 02/07/22 15:45 [facility] (Rec: 02/07/22 18:07 [facility] [id number]) OP Gait Assessment Comments Gait Comments Pt amb w/dec stance time and dec ext on RLE but amb w/o AD PT-OP-K Range of Motion Start: 02/03/22 18:04 Freq: Status: Active Protocol: Document 02/07/22 15:45 [facility] (Rec: 02/07/22 18:07 [facility] [id number]) Knee Goniometric Range of Motion Knee Right Flexion Active (degrees) 103 Extension Active (degrees) 12 Left Flexion Active (degrees) 125 Extension Active (degrees) 3 PT-OP-M Strength Start: 02/03/22 18:04 Freq: Status: Active Protocol: Document 02/07/22 15:45 [facility] (Rec: 02/07/22 18:07 [facility] [id number]) Hip Strength Hip Manual Muscle Testing Right Flexion (L2) 3+ Fair+ Abduction 4- Good- External Rotation 3+ Fair+ Internal Rotation 4 Good Left Flexion (L2) 4 Good Abduction 4+ Good+ Adduction 4- Good- External Rotation 4 Good Internal Rotation 5 Normal Knee Strength Knee Manual Muscle Testing Right Flexion (S2) 4- Good- Extension (L3) 3+ Fair+ Left Flexion (S2) 4+ Good+ Extension (L3) 5 Normal Ankle/Foot Strength Ankle and Foot Manual Muscle Testing Right Dorsiflexion (L4) 5 Normal Plantarflexion (S1) 4+ Good+ Left Dorsiflexion (L4) 5 Normal Plantarflexion (S1) 5 Normal Comments seated testing B PT-OP-Q Treatments Start: 02/03/22 18:04 Freq: Status: Active Protocol: Document 02/17/22 09:45 [facility] (Rec: 02/17/22 10:36 [facility] [id number]) Cardio Equipment Bicycle (Upright) Duration (Minutes) 5 Resistance 7 Seat Position 9 Therapeutic Exercises Supine Exercises SLR Side right Reps/Minutes 10x 5SH stretch Supine Exercise Name HS Side right Reps/Minutes 30 sec quad set Supine Exercise Name w/facilitation into towel Side right Reps/Minutes 10x 5 SH Sitting Exercises Stretch Sitting Exercise Name HS stretch Side right Reps/Minutes 1' Comments added to HEP-tolerable range Standing Exercises stretch Standing Exercise Name 1.calf on step 2. HS on step Side bilateral Reps/Minutes 30 sec TKE Side right Equipment Used lvl 2 Reps/Minutes 20 Other Exercises self-massage Other Exercise Name HS, Calf, Quad Side right Reps/Minutes 5' Comments added to HEP Manual Therapy Treatment Soft Tissue Mobilization thigh Body Location HS R Mobilization Type Rolling Intensity/Depth Moderate Body Position Supine lower leg Body Location calf Mobilization Type Rolling Intensity/Depth Moderate Body Position Supine Self-Care/Home Management Treatment Education Patient Education Home Exercise Program,Pain Management Other Education Educated pt on trying gentle stretches or self-STM with roller prior to exercising to help with HS pain. Added in HS stretch while seated and SL gastroc stretch on stair to HEP. PT-OP-T Assessment and Plan Start: 02/03/22 18:04 Freq: Status: Active Protocol: Document 02/17/22 09:45 [facility] (Rec: 02/17/22 10:36 [facility] [id number]) Physical Therapy Assessment Goals stairs Short Term Goal (STG) Pt will be able to ascend stairs reciprocally w/o rail. STG Duration 03/09/22 [facility] Goal (LTG) Pt will be able to descend stairs reciprocally w/o rail. LTG Duration 04/09/22 activities Short Term Goal (STG) Pt will be able to return to 1 mile walks w/o inc R knee pain and be able to stand 30 sec for playing his klein. STG Duration 03/11/22 [facility] Goal (LTG) Pt will be able to get up/down from ground w/o pain allowing him to start doing some home repairs and house work w/o inc pain. LTG Duration 04/09/22 strength Short Term Goal (STG) Pt will be indep w/HEP STG Duration 03/09/22 [facility] Goal (LTG) Pt will score 5/5 for B LE MMT to show improved LE strength and stability allowing for pt to return to high level work he typically does. LTG Duration 04/09/22 ROM Impairment 12-103 Short Term Goal (STG) pt will have improved R knee ROM to 5-115. STG Duration 03/09/22 Rn Occupational Goal (LTG) Pt will have improved R knee ROM to 0-125 to allow for ability to go up/down stairs and to normalize gait pattern w/o pain. LTG Duration 04/09/22 Assessment Summary Assessment Martin has 110 degrees AROM flexion, and 12 degrees active extension on R knee this session. He has been having hamstring pain since last visit and feels he over did it on monday. Worked on STM to HS and gentle stretches this session, adding a seated HS stretch and SL calf stretch on stair to HEP along with self- STM with rolling pin to RLE. Educated pt on doing some gentle stretches or using rolling pin to massage LE before starting exercises to decrease pain felt in HS. Pt had no increase in pain today but was notably apprehensive while walking around gym, reaching out for objects for balance. Physical Therapy Plan Frequency and Duration Frequency of Treatment 2x/Week Duration of Treatment 2 months Plan of Care Start Date 02/07/22 Plan of Care End Date 04/09/22 Therapeutic Interventions Therapeutic Interventions Aquatic Therapy,Balance Training,Gait Training,Home Exercise Program,Joint Mobilizations,Manual Therapy, Neuromuscular Re-education, Patient/Caregiver Education, Self-Care/Home Management,Soft Tissue Mobilization,Taping, Therapeutic Activities, Therapeutic Exercises Modalities Cold Pack/Ice Massage,Electric Stimulation,Hot Packs Next Visit Focus/Plan Next Note Type Treatment Note Next Visit Plan Assess how HS is feeling. cont to advance ROM of RLE and strength, manual to calf and HS
--- NOTE | 2022-02-22 09:08 | PT.OTN ---
Current Diagnoses Unilateral primary osteoarthritis, right knee (02/22/22) Physical Therapy Treatment Note PT-OP-A Visit Information Start: 02/03/22 18:04 Freq: Status: Active Protocol: Document 02/22/22 08:19 [facility] (Rec: 02/22/22 09:08 [facility] [id number]) Out-Patient Physical Therapy Visit Information Visit Information Visit Type Treatment Note Visit Note 03/08 Visit Start Time 08:20 Visit Stop Time 09:00 Total Visit Minutes 40 Visit Number 5 Number of EVP BUSINESS DEVELOPMENT Visits 0 PT-OP-B Current Condition Start: 02/03/22 18:04 Freq: Status: Active Protocol: Document 02/07/22 15:45 [facility] (Rec: 02/07/22 18:07 [facility] [id number]) Current Condition History of Current Condition Onset Date 01/28/22 Current Complaints R TKA History of Current Condition Pt reports TKA on 01/28/22. He has been compliant w/HEP at home and had OP procedure. He walked in without AD today. Pt notes he had R TKA d/t overall wear and tear. Pt has history of partial L TKA w/good recovery, buth otherwise no other joint issues. Pt reprots he has a low HR and gets down to the high 30s and has some dizziness. He is working w/a compress engineer on this. 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 It felt fine. PT-OP-F Manual Assessment Start: 02/03/22 18:04 Freq: Status: Active Protocol: Document 02/07/22 15:45 [facility] (Rec: 02/07/22 18:07 [facility] [id number]) Manual Assessments Soft Tissue Assessment Soft Tissue Mobility Assessment Pt has bruising on med quad and Add surface; significant swelling of RLE to ankle PT-OP-G Mobility & Gait Start: 02/03/22 18:04 Freq: Status: Active Protocol: Document 02/07/22 15:45 [facility] (Rec: 02/07/22 18:07 [facility] [id number]) OP Gait Assessment Comments Gait Comments Pt amb w/dec stance time and dec ext on RLE but amb w/o AD PT-OP-K Range of Motion Start: 02/03/22 18:04 Freq: Status: Active Protocol: Document 02/07/22 15:45 [facility] (Rec: 02/07/22 18:07 [facility] [id number]) Knee Goniometric Range of Motion Knee Right Flexion Active (degrees) 103 Extension Active (degrees) 12 Left Flexion Active (degrees) 125 Extension Active (degrees) 3 PT-OP-M Strength Start: 02/03/22 18:04 Freq: Status: Active Protocol: Document 02/07/22 15:45 [facility] (Rec: 02/07/22 18:07 [facility] [id number]) Hip Strength Hip Manual Muscle Testing Right Flexion (L2) 3+ Fair+ Abduction 4- Good- External Rotation 3+ Fair+ Internal Rotation 4 Good Left Flexion (L2) 4 Good Abduction 4+ Good+ Adduction 4- Good- External Rotation 4 Good Internal Rotation 5 Normal Knee Strength Knee Manual Muscle Testing Right Flexion (S2) 4- Good- Extension (L3) 3+ Fair+ Left Flexion (S2) 4+ Good+ Extension (L3) 5 Normal Ankle/Foot Strength Ankle and Foot Manual Muscle Testing Right Dorsiflexion (L4) 5 Normal Plantarflexion (S1) 4+ Good+ Left Dorsiflexion (L4) 5 Normal Plantarflexion (S1) 5 Normal Comments seated testing B PT-OP-Q Treatments Start: 02/03/22 18:04 Freq: Status: Active Protocol: Document 02/22/22 08:19 [facility] (Rec: 02/22/22 09:08 [facility] [id number]) Cardio Equipment Recumbent Bicycle Duration (Minutes) 5 Resistance 8 Seat Position 10 Gym Equipment Shuttle Recovery Bilateral Squats Resistance 87#, 100# Shuttle Recovery Platform Stable Reps/Time 2x15 Therapeutic Exercises Sitting Exercises Stretch Sitting Exercise Name HS stretch Side right Reps/Minutes 1' Comments added to HEP-tolerable range Standing Exercises sit to stand Standing Exercise Name hands as needed from plinth Side bilateral Reps/Minutes 10 Comments trying to get BLEs under self evenly stretch Standing Exercise Name 1.calf on step 2. HS on step Side bilateral Reps/Minutes 30 sec step up Side right Equipment Used 6 in w/o rail Reps/Minutes 10 TKE Side right Equipment Used lvl 2 Reps/Minutes 20 Manual Therapy Treatment Soft Tissue Mobilization thigh Body Location ITB & HS R Mobilization Type Rolling Intensity/Depth Moderate Body Position Supine lower leg Body Location calf Mobilization Type Rolling Intensity/Depth Moderate Body Position Supine Joint Mobilizations patellefemoral Joint R Direction sup, med, inf PT-OP-T Assessment and Plan Start: 02/03/22 18:04 Freq: Status: Active Protocol: Document 02/22/22 08:19 [facility] (Rec: 02/22/22 09:08 [facility] [id number]) Physical Therapy Assessment Goals stairs Short Term Goal (STG) Pt will be able to ascend stairs reciprocally w/o rail. STG Duration 03/09/22 Apartment Leasing Consultant Goal (LTG) Pt will be able to descend stairs reciprocally w/o rail. LTG Duration 04/09/22 activities Short Term Goal (STG) Pt will be able to return to 1 mile walks w/o inc R knee pain and be able to stand 30 sec for playing his klein. STG Duration 03/11/22 Apartment Leasing Consultant Goal (LTG) Pt will be able to get up/down from ground w/o pain allowing him to start doing some home repairs and house work w/o inc pain. LTG Duration 04/09/22 strength Short Term Goal (STG) Pt will be indep w/HEP STG Duration 03/09/22 Intermediate Goal (LTG) Pt will score 5/5 for B LE MMT to show improved LE strength and stability allowing for pt to return to high level work he typically does. LTG Duration 04/09/22 ROM Impairment 12-103 Short Term Goal (STG) pt will have improved R knee ROM to 5-115. STG Duration 03/09/22 Intermediate Goal (LTG) Pt will have improved R knee ROM to 0-125 to allow for ability to go up/down stairs and to normalize gait pattern w/o pain. LTG Duration 04/09/22 Assessment Summary Assessment Pt had 7-117 deg ROM after manual. He did well with exercises today and asked for more difficulty in some exercises. He has been progressing well functionally. Physical Therapy Plan Frequency and Duration Frequency of Treatment 2x/Week Duration of Treatment 2 months Plan of Care Start Date 02/07/22 Plan of Care End Date 04/09/22 Next Visit Focus/Plan Next Note Type Treatment Note Next Visit Plan cont to advance ROM of RLE and strength, manual to calf and HS
--- NOTE | 2022-03-03 10:28 | PT.OTN ---
Current Diagnoses Unilateral primary osteoarthritis, right knee (03/03/22) Physical Therapy Treatment Note PT-OP-A Visit Information Start: 02/03/22 18:04 Freq: Status: Active Protocol: Document 03/03/22 09:41 MA (Rec: 03/03/22 10:28 MA [id number]) Out-Patient Physical Therapy Visit Information Visit Information Visit Type Treatment Note Visit Note 04/08 Visit Start Time 09:45 Visit Stop Time 10:25 Total Visit Minutes 40 Visit Number 6 Number of MANAGER OF OPERATIONS Visits 1 PT-OP-B Current Condition Start: 02/03/22 18:04 Freq: Status: Active Protocol: Document 02/07/22 15:45 [facility] (Rec: 02/07/22 18:07 [facility] [id number]) Current Condition History of Current Condition Onset Date 01/28/22 Current Complaints R TKA History of Current Condition Pt reports TKA on 01/28/22. He has been compliant w/HEP at home and had OP procedure. He walked in without AD today. Pt notes he had R TKA d/t overall wear and tear. Pt has history of partial L TKA w/good recovery, buth otherwise no other joint issues. Pt reprots he has a low HR and gets down to the high 30s and has some dizziness. He is working w/a electrical prospecting observer on this. 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 PT-OP-F Manual Assessment Start: 02/03/22 18:04 Freq: Status: Active Protocol: Document 02/07/22 15:45 [facility] (Rec: 02/07/22 18:07 [facility] [id number]) Manual Assessments Soft Tissue Assessment Soft Tissue Mobility Assessment Pt has bruising on med quad and Add surface; significant swelling of RLE to ankle PT-OP-G Mobility & Gait Start: 02/03/22 18:04 Freq: Status: Active Protocol: Document 02/07/22 15:45 [facility] (Rec: 02/07/22 18:07 [facility] [id number]) OP Gait Assessment Comments Gait Comments Pt amb w/dec stance time and dec ext on RLE but amb w/o AD PT-OP-K Range of Motion Start: 02/03/22 18:04 Freq: Status: Active Protocol: Document 02/07/22 15:45 [facility] (Rec: 02/07/22 18:07 [facility] [id number]) Knee Goniometric Range of Motion Knee Right Flexion Active (degrees) 103 Extension Active (degrees) 12 Left Flexion Active (degrees) 125 Extension Active (degrees) 3 PT-OP-M Strength Start: 02/03/22 18:04 Freq: Status: Active Protocol: Document 02/07/22 15:45 [facility] (Rec: 02/07/22 18:07 [facility] [id number]) Hip Strength Hip Manual Muscle Testing Right Flexion (L2) 3+ Fair+ Abduction 4- Good- External Rotation 3+ Fair+ Internal Rotation 4 Good Left Flexion (L2) 4 Good Abduction 4+ Good+ Adduction 4- Good- External Rotation 4 Good Internal Rotation 5 Normal Knee Strength Knee Manual Muscle Testing Right Flexion (S2) 4- Good- Extension (L3) 3+ Fair+ Left Flexion (S2) 4+ Good+ Extension (L3) 5 Normal Ankle/Foot Strength Ankle and Foot Manual Muscle Testing Right Dorsiflexion (L4) 5 Normal Plantarflexion (S1) 4+ Good+ Left Dorsiflexion (L4) 5 Normal Plantarflexion (S1) 5 Normal Comments seated testing B PT-OP-Q Treatments Start: 02/03/22 18:04 Freq: Status: Active Protocol: Document 03/03/22 09:41 MA (Rec: 03/03/22 10:28 MA [id number]) Cardio Equipment Bicycle (Upright) Duration (Minutes) 6 Resistance 7 Seat Position 9 Gym Equipment Shuttle Recovery Heel Raises Details calf raises Resistance 75# Shuttle Recovery Platform Stable Reps/Time x10, x20 alternating Bilateral Squats Resistance 87#, 100# Shuttle Recovery Platform Stable Reps/Time 2x15 Therapeutic Exercises Standing Exercises stretch Standing Exercise Name 1.calf on step 2. HS on step Side bilateral Reps/Minutes 30 sec step up Side right Equipment Used 6 in w/o rail Reps/Minutes 10 TKE Side right Equipment Used lvl 2 Reps/Minutes 20 Manual Therapy Treatment Soft Tissue Mobilization thigh Body Location ITB & HS R Mobilization Type Rolling Intensity/Depth Moderate Body Position Supine lower leg Body Location calf Mobilization Type Rolling Intensity/Depth Moderate Body Position Supine PT-OP-T Assessment and Plan Start: 02/03/22 18:04 Freq: Status: Active Protocol: Document 03/03/22 09:41 MA (Rec: 03/03/22 10:28 MA [id number]) Physical Therapy Assessment Goals stairs Short Term Goal (STG) Pt will be able to ascend stairs reciprocally w/o rail. STG Duration 03/09/22 Drop Wirer Goal (LTG) Pt will be able to descend stairs reciprocally w/o rail. LTG Duration 04/09/22 activities Short Term Goal (STG) Pt will be able to return to 1 mile walks w/o inc R knee pain and be able to stand 30 sec for playing his klein. STG Duration 03/11/22 Group Home Goal (LTG) Pt will be able to get up/down from ground w/o pain allowing him to start doing some home repairs and house work w/o inc pain. LTG Duration 04/09/22 strength Short Term Goal (STG) Pt will be indep w/HEP STG Duration 03/09/22 Drop Wirer Goal (LTG) Pt will score 5/5 for B LE MMT to show improved LE strength and stability allowing for pt to return to high level work he typically does. LTG Duration 04/09/22 ROM Impairment 12-103 Short Term Goal (STG) pt will have improved R knee ROM to 5-115. STG Duration 03/09/22 Drop Wirer Goal (LTG) Pt will have improved R knee ROM to 0-125 to allow for ability to go up/down stairs and to normalize gait pattern w/o pain. LTG Duration 04/09/22 Assessment Summary Assessment Pt's R knee AROM at end of session continues to be 7-117 degrees. Educated pt on trying to improve R heel strike during gait and continue working on increasing knee extension at home. Physical Therapy Plan Frequency and Duration Frequency of Treatment 2x/Week Duration of Treatment 2 months Plan of Care Start Date 02/07/22 Plan of Care End Date 04/09/22 Therapeutic Interventions Therapeutic Interventions Aquatic Therapy,Balance Training,Gait Training,Home Exercise Program,Joint Mobilizations,Manual Therapy, Neuromuscular Re-education, Patient/Caregiver Education, Self-Care/Home Management,Soft Tissue Mobilization,Taping, Therapeutic Activities, Therapeutic Exercises Modalities Cold Pack/Ice Massage,Electric Stimulation,Hot Packs Next Visit Focus/Plan Next Note Type Treatment Note Next Visit Plan cont to advance ROM of RLE and strength, manual to calf and HS, imrpove R heel strike with gait
--- NOTE | 2022-03-09 11:42 | PT.OTN ---
Current Diagnoses Unilateral primary osteoarthritis, right knee (03/09/22) Physical Therapy Treatment Note PT-OP-A Visit Information Start: 02/03/22 18:04 Freq: Status: Active Protocol: Document 03/09/22 11:04 MA (Rec: 03/09/22 11:42 MA [id number]) Out-Patient Physical Therapy Visit Information Visit Information Visit Type Treatment Note Visit Note 05/08 Visit Start Time 11:00 Visit Stop Time 11:41 Total Visit Minutes 41 Visit Number 7 Number of SPRINKLER INSPECTOR Visits 2 PT-OP-B Current Condition Start: 02/03/22 18:04 Freq: Status: Active Protocol: Document 02/07/22 15:45 [facility] (Rec: 02/07/22 18:07 [facility] [id number]) Current Condition History of Current Condition Onset Date 01/28/22 Current Complaints R TKA History of Current Condition Pt reports TKA on 01/28/22. He has been compliant w/HEP at home and had OP procedure. He walked in without AD today. Pt notes he had R TKA d/t overall wear and tear. Pt has history of partial L TKA w/good recovery, buth otherwise no other joint issues. Pt reprots he has a low HR and gets down to the high 30s and has some dizziness. He is working w/a human resources operations manager on this. 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 It feels like it gets a little straighter. PT-OP-F Manual Assessment Start: 02/03/22 18:04 Freq: Status: Active Protocol: Document 02/07/22 15:45 [facility] (Rec: 02/07/22 18:07 [facility] [id number]) Manual Assessments Soft Tissue Assessment Soft Tissue Mobility Assessment Pt has bruising on med quad and Add surface; significant swelling of RLE to ankle PT-OP-G Mobility & Gait Start: 02/03/22 18:04 Freq: Status: Active Protocol: Document 02/07/22 15:45 [facility] (Rec: 02/07/22 18:07 [facility] [id number]) OP Gait Assessment Comments Gait Comments Pt amb w/dec stance time and dec ext on RLE but amb w/o AD PT-OP-K Range of Motion Start: 02/03/22 18:04 Freq: Status: Active Protocol: Document 02/07/22 15:45 [facility] (Rec: 02/07/22 18:07 [facility] [id number]) Knee Goniometric Range of Motion Knee Right Flexion Active (degrees) 103 Extension Active (degrees) 12 Left Flexion Active (degrees) 125 Extension Active (degrees) 3 PT-OP-M Strength Start: 02/03/22 18:04 Freq: Status: Active Protocol: Document 02/07/22 15:45 [facility] (Rec: 02/07/22 18:07 [facility] [id number]) Hip Strength Hip Manual Muscle Testing Right Flexion (L2) 3+ Fair+ Abduction 4- Good- External Rotation 3+ Fair+ Internal Rotation 4 Good Left Flexion (L2) 4 Good Abduction 4+ Good+ Adduction 4- Good- External Rotation 4 Good Internal Rotation 5 Normal Knee Strength Knee Manual Muscle Testing Right Flexion (S2) 4- Good- Extension (L3) 3+ Fair+ Left Flexion (S2) 4+ Good+ Extension (L3) 5 Normal Ankle/Foot Strength Ankle and Foot Manual Muscle Testing Right Dorsiflexion (L4) 5 Normal Plantarflexion (S1) 4+ Good+ Left Dorsiflexion (L4) 5 Normal Plantarflexion (S1) 5 Normal Comments seated testing B PT-OP-Q Treatments Start: 02/03/22 18:04 Freq: Status: Active Protocol: Document 03/09/22 11:04 MA (Rec: 03/09/22 11:42 MA [id number]) Cardio Equipment Bicycle (Upright) Duration (Minutes) 6 Resistance 7 Seat Position 9 Treadmill Duration (Minutes) 5 Speed 2.5 Incline 0 Other working on heel strike Therapeutic Exercises Standing Exercises stretch Standing Exercise Name 1.calf on step 2. HS on step Side bilateral Reps/Minutes 2x30 ea step up Side right Equipment Used 6 in w/o rail Reps/Minutes 10 TKE Side right Equipment Used lvl 2 Reps/Minutes 20 Manual Therapy Treatment Soft Tissue Mobilization thigh Body Location ITB & HS R Mobilization Type Rolling Intensity/Depth Moderate Body Position Supine lower leg Body Location calf, anterior tibia Mobilization Type Myofascial Release,Rolling, Strumming Intensity/Depth Moderate Body Position Supine PT-OP-T Assessment and Plan Start: 02/03/22 18:04 Freq: Status: Active Protocol: Document 03/09/22 11:04 MA (Rec: 03/09/22 11:42 MA [id number]) Physical Therapy Assessment Goals stairs Short Term Goal (STG) Pt will be able to ascend stairs reciprocally w/o rail. STG Duration 03/09/22 Fdc Goal (LTG) Pt will be able to descend stairs reciprocally w/o rail. LTG Duration 04/09/22 activities Short Term Goal (STG) Pt will be able to return to 1 mile walks w/o inc R knee pain and be able to stand 30 sec for playing his klein. STG Duration 03/11/22 Continuous Improvement Intern Goal (LTG) Pt will be able to get up/down from ground w/o pain allowing him to start doing some home repairs and house work w/o inc pain. LTG Duration 04/09/22 strength Short Term Goal (STG) Pt will be indep w/HEP STG Duration 03/09/22 Continuous Improvement Intern Goal (LTG) Pt will score 5/5 for B LE MMT to show improved LE strength and stability allowing for pt to return to high level work he typically does. LTG Duration 04/09/22 ROM Impairment 12-103 Short Term Goal (STG) pt will have improved R knee ROM to 5-115. STG Duration 03/09/22 Fdc Goal (LTG) Pt will have improved R knee ROM to 0-125 to allow for ability to go up/down stairs and to normalize gait pattern w/o pain. LTG Duration 04/09/22 Assessment Summary Assessment Pt has been working on improving ROM at home and was able to get R knee AROM 2-120 degrees at end of session today. He continues to have some swelling around R ankle and calf. Educated pt on using ice and elevating leg at end of day to decrease LE swelling . Physical Therapy Plan Frequency and Duration Frequency of Treatment 2x/Week Duration of Treatment 2 months Plan of Care Start Date 02/07/22 Plan of Care End Date 04/09/22 Therapeutic Interventions Therapeutic Interventions Aquatic Therapy,Balance Training,Gait Training,Home Exercise Program,Joint Mobilizations,Manual Therapy, Neuromuscular Re-education, Patient/Caregiver Education, Self-Care/Home Management,Soft Tissue Mobilization,Taping, Therapeutic Activities, Therapeutic Exercises Modalities Cold Pack/Ice Massage,Electric Stimulation,Hot Packs Next Visit Focus/Plan Next Note Type Treatment Note Next Visit Plan Begin scar mobs if scabs have healed. cont to advance ROM of RLE and strength, manual to calf and HS, imrpove R heel strike with gait.
--- NOTE | 2022-03-16 11:49 | PT.OTN ---
Current Diagnoses Unilateral primary osteoarthritis, right knee (03/16/22) Physical Therapy Treatment Note PT-OP-A Visit Information Start: 02/03/22 18:04 Freq: Status: Active Protocol: Document 03/16/22 11:01 MA (Rec: 03/16/22 11:49 MA [id number]) Out-Patient Physical Therapy Visit Information Visit Information Visit Type Treatment Note Visit Note 06/08 Visit Start Time 11:00 Visit Stop Time 11:43 Total Visit Minutes 43 Visit Number 8 Number of SENIOR MEDIA DIRECTOR Visits 3 PT-OP-B Current Condition Start: 02/03/22 18:04 Freq: Status: Active Protocol: Document 02/07/22 15:45 [facility] (Rec: 02/07/22 18:07 [facility] [id number]) Current Condition History of Current Condition Onset Date 01/28/22 Current Complaints R TKA History of Current Condition Pt reports TKA on 01/28/22. He has been compliant w/HEP at home and had OP procedure. He walked in without AD today. Pt notes he had R TKA d/t overall wear and tear. Pt has history of partial L TKA w/good recovery, buth otherwise no other joint issues. Pt reprots he has a low HR and gets down to the high 30s and has some dizziness. He is working w/a trial justice on this. 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 He has been very fatigued recently and believes it has something to do with his HR. PT-OP-F Manual Assessment Start: 02/03/22 18:04 Freq: Status: Active Protocol: Document 02/07/22 15:45 [facility] (Rec: 02/07/22 18:07 [facility] [id number]) Manual Assessments Soft Tissue Assessment Soft Tissue Mobility Assessment Pt has bruising on med quad and Add surface; significant swelling of RLE to ankle PT-OP-G Mobility & Gait Start: 02/03/22 18:04 Freq: Status: Active Protocol: Document 02/07/22 15:45 [facility] (Rec: 02/07/22 18:07 [facility] [id number]) OP Gait Assessment Comments Gait Comments Pt amb w/dec stance time and dec ext on RLE but amb w/o AD PT-OP-K Range of Motion Start: 02/03/22 18:04 Freq: Status: Active Protocol: Document 02/07/22 15:45 [facility] (Rec: 02/07/22 18:07 [facility] [id number]) Knee Goniometric Range of Motion Knee Right Flexion Active (degrees) 103 Extension Active (degrees) 12 Left Flexion Active (degrees) 125 Extension Active (degrees) 3 PT-OP-M Strength Start: 02/03/22 18:04 Freq: Status: Active Protocol: Document 02/07/22 15:45 [facility] (Rec: 02/07/22 18:07 [facility] [id number]) Hip Strength Hip Manual Muscle Testing Right Flexion (L2) 3+ Fair+ Abduction 4- Good- External Rotation 3+ Fair+ Internal Rotation 4 Good Left Flexion (L2) 4 Good Abduction 4+ Good+ Adduction 4- Good- External Rotation 4 Good Internal Rotation 5 Normal Knee Strength Knee Manual Muscle Testing Right Flexion (S2) 4- Good- Extension (L3) 3+ Fair+ Left Flexion (S2) 4+ Good+ Extension (L3) 5 Normal Ankle/Foot Strength Ankle and Foot Manual Muscle Testing Right Dorsiflexion (L4) 5 Normal Plantarflexion (S1) 4+ Good+ Left Dorsiflexion (L4) 5 Normal Plantarflexion (S1) 5 Normal Comments seated testing B PT-OP-Q Treatments Start: 02/03/22 18:04 Freq: Status: Active Protocol: Document 03/16/22 11:01 MA (Rec: 03/16/22 11:49 MA [id number]) Cardio Equipment Bicycle (Upright) Duration (Minutes) 6 Resistance 7-9 Seat Position 9 Gym Equipment Shuttle Recovery SL Squats Details towel roll under R toes Resistance 50#, 75# Shuttle Recovery Platform Stable Reps/Time 2x10 Bilateral Squats Resistance 87#, 100# Shuttle Recovery Platform Stable Reps/Time 2x15 Therapeutic Exercises Standing Exercises stretch Standing Exercise Name 1.calf on step 2. HS on step Side bilateral Reps/Minutes 2x30 ea step up Side right Equipment Used 6 in w/o rail Reps/Minutes 10 heel raises Standing Exercise Name on step Side bilateral Reps/Minutes 20 Manual Therapy Treatment Soft Tissue Mobilization Scar Body Location distal scar avoiding scabbed area Mobilization Type Cross-Friction Intensity/Depth Moderate Body Position Supine Manual Techniques Stretch Type contract-relax HS stretch Body Position Supine Self-Care/Home Management Treatment Education Other Education educated pt on how to mobilize scar at home and importance of breaking up scar tissue PT-OP-T Assessment and Plan Start: 02/03/22 18:04 Freq: Status: Active Protocol: Document 03/16/22 11:01 MA (Rec: 03/16/22 11:49 MA [id number]) Physical Therapy Assessment Goals stairs Short Term Goal (STG) Pt will be able to ascend stairs reciprocally w/o rail. STG Duration 03/09/22 Commissioned Sales Associate Goal (LTG) Pt will be able to descend stairs reciprocally w/o rail. LTG Duration 04/09/22 activities Short Term Goal (STG) Pt will be able to return to 1 mile walks w/o inc R knee pain and be able to stand 30 sec for playing his klein. STG Duration 03/11/22 [facility] Goal (LTG) Pt will be able to get up/down from ground w/o pain allowing him to start doing some home repairs and house work w/o inc pain. LTG Duration 04/09/22 strength Short Term Goal (STG) Pt will be indep w/HEP STG Duration 03/09/22 [facility] Goal (LTG) Pt will score 5/5 for B LE MMT to show improved LE strength and stability allowing for pt to return to high level work he typically does. LTG Duration 04/09/22 ROM Impairment 12-103 Short Term Goal (STG) pt will have improved R knee ROM to 5-115. STG Duration 03/09/22 Commissioned Sales Associate Goal (LTG) Pt will have improved R knee ROM to 0-125 to allow for ability to go up/down stairs and to normalize gait pattern w/o pain. LTG Duration 04/09/22 Assessment Summary Assessment Martin has no noticable swelling anymore on RLE. He was able to progress to SL squats this session on shuttle recovery. His R knee ROM continues to be 2-120 degrees. Pt has increased tightness through distal scar and has one small scab that PT was able to work around today during scar mobs. Encouraged pt to begin working on scar at home to help improve tightness and to continue working on stretching HS and calves for improving knee extension. Physical Therapy Plan Frequency and Duration Frequency of Treatment 2x/Week Duration of Treatment 2 months Plan of Care Start Date 02/07/22 Plan of Care End Date 04/09/22 Therapeutic Interventions Therapeutic Interventions Aquatic Therapy,Balance Training,Gait Training,Home Exercise Program,Joint Mobilizations,Manual Therapy, Neuromuscular Re-education, Patient/Caregiver Education, Self-Care/Home Management,Soft Tissue Mobilization,Taping, Therapeutic Activities, Therapeutic Exercises Modalities Cold Pack/Ice Massage,Electric Stimulation,Hot Packs Next Visit Focus/Plan Next Note Type Treatment Note Next Visit Plan Discuss with pt possible d/c after 2 mores sessions. Scar mobs, cont to advance ROM of RLE and strength, manual to calf and HS
--- NOTE | 2022-03-30 12:11 | PT.OTN ---
Current Diagnoses Unilateral primary osteoarthritis, right knee (03/30/22) Physical Therapy Treatment Note PT-OP-A Visit Information Start: 02/03/22 18:04 Freq: Status: Active Protocol: Document 03/30/22 11:22 [facility] (Rec: 03/30/22 12:11 [facility] [id number]) Out-Patient Physical Therapy Visit Information Visit Information Visit Type Discharge Summary Visit Start Time 11:19 Visit Stop Time 11:50 Total Visit Minutes 31 Visit Number 9 Number of MEASUREMENT SUPERVISOR Visits 0 PT-OP-B Current Condition Start: 02/03/22 18:04 Freq: Status: Active Protocol: Document 02/07/22 15:45 [facility] (Rec: 02/07/22 18:07 [facility] [id number]) Current Condition History of Current Condition Onset Date 01/28/22 Current Complaints R TKA History of Current Condition Pt reports TKA on 01/28/22. He has been compliant w/HEP at home and had OP procedure. He walked in without AD today. Pt notes he had R TKA d/t overall wear and tear. Pt has history of partial L TKA w/good recovery, buth otherwise no other joint issues. Pt reprots he has a low HR and gets down to the high 30s and has some dizziness. He is working w/a chalk machine operator on this. 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 (Rec: 03/30/22 12:11 [facility] [id number]) OP-PT Subjective Patient Comments Patient Comments pt feels like his knee is doing well and it does not limit him. PT-OP-F Manual Assessment Start: 02/03/22 18:04 Freq: Status: Active Protocol: Document 02/07/22 15:45 [facility] (Rec: 02/07/22 18:07 [facility] [id number]) Manual Assessments Soft Tissue Assessment Soft Tissue Mobility Assessment Pt has bruising on med quad and Add surface; significant swelling of RLE to ankle PT-OP-G Mobility & Gait Start: 02/03/22 18:04 Freq: Status: Active Protocol: Document 02/07/22 15:45 [facility] (Rec: 02/07/22 18:07 [facility] [id number]) OP Gait Assessment Comments Gait Comments Pt amb w/dec stance time and dec ext on RLE but amb w/o AD PT-OP-K Range of Motion Start: 02/03/22 18:04 Freq: Status: Active Protocol: Document 03/30/22 11:22 [facility] (Rec: 03/30/22 12:11 [facility] [id number]) Knee Goniometric Range of Motion Knee Right Flexion Active (degrees) 121 Extension Active (degrees) 4 PT-OP-M Strength Start: 02/03/22 18:04 Freq: Status: Active Protocol: Document 03/30/22 11:22 [facility] (Rec: 03/30/22 12:11 [facility] [id number]) Hip Strength Hip Manual Muscle Testing Right Flexion (L2) 5 Normal Extension (S1) 5 Normal Abduction 5 Normal Adduction 5 Normal External Rotation 5 Normal Internal Rotation 5 Normal Left Flexion (L2) 5 Normal Extension (S1) 5 Normal Abduction 5 Normal Adduction 5 Normal External Rotation 5 Normal Internal Rotation 5 Normal Knee Strength Knee Manual Muscle Testing Right Flexion (S2) 5 Normal Extension (L3) 5 Normal Left Flexion (S2) 5 Normal Extension (L3) 5 Normal Ankle/Foot Strength Ankle and Foot Manual Muscle Testing Right Dorsiflexion (L4) 5 Normal Plantarflexion (S1) 5 Normal Comments 20 heel raises Left Dorsiflexion (L4) 5 Normal Plantarflexion (S1) 5 Normal PT-OP-Q Treatments Start: 02/03/22 18:04 Freq: Status: Active Protocol: Document 03/30/22 11:22 [facility] (Rec: 03/30/22 12:11 [facility] [id number]) Cardio Equipment Bicycle (Upright) Duration (Minutes) 6 Resistance 11 Seat Position 9 Therapeutic Exercises Supine Exercises ext Supine Exercise Name ext stretch w/quad set Side right Reps/Minutes 5 x quad set Standing Exercises lunges Standing Exercise Name at rail Side bilateral Reps/Minutes 8 squat Standing Exercise Name over chair Side bilateral Reps/Minutes 15 SLS Side bilateral Reps/Minutes trials B stretch Standing Exercise Name 1.calf on step 2. HS on step Side bilateral Reps/Minutes 30 ea heel raises Standing Exercise Name SL Side bilateral Reps/Minutes 20 Self-Care/Home Management Treatment Education Other Education eduto cont exercises at home including walking and HEP. edu why workingo n end range ext still important. Discussed what each exercise was for and verbally reviewed HEP PT-OP-T Assessment and Plan Start: 02/03/22 18:04 Freq: Status: Active Protocol: Document 03/30/22 11:22 [facility] (Rec: 03/30/22 12:11 [facility] [id number]) Physical Therapy Assessment Goals stairs Short Term Goal (STG) Pt will be able to ascend stairs reciprocally w/o rail. STG Duration achieved Fdc Goal (LTG) Pt will be able to descend stairs reciprocally w/o rail. LTG Duration achieved activities Short Term Goal (STG) Pt will be able to return to 1 mile walks w/o inc R knee pain and be able to stand 30 sec for playing his klein. STG Duration achieved New Car Make Ready Worker Goal (LTG) Pt will be able to get up/down from ground w/o pain allowing him to start doing some home repairs and house work w/o inc pain. LTG Duration achieved 6/1 strength Short Term Goal (STG) Pt will be indep w/HEP STG Duration achieved New Car Make Ready Worker Goal (LTG) Pt will score 5/5 for B LE MMT to show improved LE strength and stability allowing for pt to return to high level work he typically does. LTG Duration achieved 6/1 ROM Impairment 12-103 Short Term Goal (STG) pt will have improved R knee ROM to 5-115. STG Duration achieved Fdc Goal (LTG) Pt will have improved R knee ROM to 0-125 to allow for ability to go up/down stairs and to normalize gait pattern w/o pain. LTG Duration 4-121 Assessment Summary Assessment Pt has met all goals except ROM goals and can cont to wrk on ROM w/exercises at home. He was given HEP to work on that is specific for current needs . DC at this time to home program. Physical Therapy Plan Discharge Physical Therapy Discharge Reasons Goals Met
== END 2022-03-31 13:12 | disposition home or self-care (01) ==
LOC: PHYS 11:15
PROVIDERS: Family Provider Physician Assistant; PCP Physician Assistant; Referring Provider Physician Assistant; Visit Provider Physician Assistant
DX: M17.11 Unilateral primary osteoarthritis, right knee (principal)
CPT/HCPCS: 97110; 97140; 97161; 97535

== ENCOUNTER 2022-09-17 21:51 | Emergency (ER) | payer MEDICARE, SELFPAY ==
[2022-09-17 21:57] VITALS: BP 154/71; PULSE 59; RESP 25; TEMP 36.6; O2SAT 99; BMI 27.5
--- NOTE | 2022-09-17 22:00 | DI.RAD.S_ITS ---
PROCEDURE: XR CHEST 1V INDICATIONS: chest pain TECHNIQUE: One view of the chest was acquired. COMPARISON: [facility], CR, XR CHEST 2V, 11/08/2019, 7:28. FINDINGS: Surgical changes and devices: None. Lungs and pleura: Lungs are clear. No pleural effusions or pneumothorax. Mediastinum: Mediastinal contours appear normal. Heart size is normal. Bones and chest wall: No suspicious bony lesions. Overlying soft tissues appear unremarkable. IMPRESSION: Normal for age, source of current chest pain symptoms is not seen. Dictated by: Solo Ferreira M.D. on 09/17/2022 at 22:41 Approved by: Solo Ferreira M.D. on 09/17/2022 at 22:41
--- NOTE | 2022-09-17 22:05 | PC.NURSE ---
XR at bedside
--- NOTE | 2022-09-17 22:15 | PC.NURSE ---
States that he was playing a string instrument in which he has to stand - states that he had just finished a 2 hour concert and bent down to put his instrument away - states that everything started to feel ling and he felt like he was going to pass out - this has happened to him before - states that he has been being followed by cardiology and recently had a 5 day halter monitor - has been being evaluated for a possible pacemaker - alert and oriented at this time - states that he feels better - no dizziness at this time
--- NOTE | 2022-09-17 22:20 | PC.NURSE ---
Labs drawn with 21ga butterfly to LAC - tolerated well
[2022-09-17 22:38] VITALS: PULSE 62; RESP 15; O2SAT 99
[2022-09-17 22:39] VITALS: BP 116/62; PULSE 54; RESP 13; O2SAT 99
--- NOTE | 2022-09-17 22:45 | PC.NURSE ---
Resting quietly in NAD - no needs voiced at this time - alert and oriented - PWD
[2022-09-17 22:48] LABS: Add Manual Diff / Slide Review NO; Basophils Absolute Auto 100 /uL (0-100); Basophils Percent Auto 0.7 % (0-2); Eosinophils Absolute Auto 200 /uL (0-450); Eosinophils Percent Auto 2.1 % (2-4); Hematocrit 36.2 % (41-53); Hemoglobin 11.7 g/dL (13.5-17.5); Lymphocytes Absolute Auto 1300 /uL (1100-4500); Lymphocytes Percent Auto 15.3 % (25-40); Mean Corpuscular HGB Conc 32.2 % (30-36); Mean Corpuscular Hemoglobin 25.1 PG (26-34); Mean Corpuscular Volume 77.9 fL (80-100); Monocytes Absolute Auto 800 /uL (0-900); Monocytes Percent Auto 9.2 % (3-14); Neutrophils Absolute Auto 6000 /uL (1500-7000); Neutrophils Percent Auto 72.7 % (50-75); Platelet Count 268 X10^3/uL (150-400); Red Blood Cell Count 4.65 X10^6/uL (4.5-5.9); Red Cell Distribution Width 17.3 % (11.6-14.8); White Blood Cell Count 8.2 X10^3/uL (4.5-11.0)
[2022-09-17 22:55] LABS: Prothrombin Time 11.8 SECONDS (10.1-12.7)
[2022-09-17 22:58] LABS: PTT Partial Thromboplastin Tim 25 SECONDS (26-36)
[2022-09-17 23:00] VITALS: BP 123/81; PULSE 76; RESP 19; O2SAT 98
[2022-09-17 23:00] LABS: Alanine Aminotransferase 22 IU/L (<50); Albumin 4.1 g/dL (3.5-5.0); Albumin Globulin Ratio 1.2 (1.0-2.8); Alkaline Phosphatase 72 U/L (38-126); Aspartate Aminotransferase 24 IU/L (17-59); BUN Creatinine Ratio 20.4 (6-22); Bilirubin Total 0.3 mg/dL (0.2-1.3); Blood Urea Nitrogen 33 mg/dL (9-20); Calcium 8.9 mg/dL (8.4-10.2); Carbon Dioxide 21 mmol/L (22-32); Chloride 108 mmol/L (98-107); Creatine Kinase 218 U/L (55-170); Estimated Glomerular Filt Rate 44 mL/min (>60); Globulin 3.4 g/dL (1.7-4.1); Glucose 101 mg/dL (80-110); HEMOLYSIS < 15 (0-50); Lipase 111 U/L (23-300); Magnesium 1.8 mg/dL (1.6-2.3); Potassium 3.9 mmol/L (3.4-5.1); Sodium 138 mmol/L (137-145); Total Protein 7.5 g/dL (6.3-8.2)
[2022-09-17 23:11] LABS: Troponin I 0.019 ng/mL (0.01-0.034)
[2022-09-17 23:15] LABS: CKMB % Relative Index 1.8 % (1.5-5.0); Creatine Kinase MB 3.89 ng/mL (<2.37)
[2022-09-17 23:30] VITALS: BP 120/68; PULSE 54; RESP 11; O2SAT 97
--- NOTE | 2022-09-17 23:30 | PC.NURSE ---
Talking with at bedside - states that he is feeling better at this time - no concerns with lightheaded or feeling like passing out. Alert and oriented - PWD with respirations equal and unlabored bilaterally - NAD - no needs voiced
--- NOTE | 2022-09-17 23:47 | ED_ITS ---
HPI - Syncope General Chief Complaint: Dizziness Stated Complaint: near syncope Time Seen by Provider: 09/17/22 23:27 Source: patient and EMS Mode of arrival: EMS History of Present Illness HPI narrative: Patient is a 77-year-old male with probable sinus node dysfunction and multiple syncopal and presyncopal episodes. He was recently seen evaluated at [facility] in electrophysiology for these symptoms. He has now had 2x 7 day Zio patch is neither which has shown anything. Tonight he had another syncopal episode. He had been playing string based standing up in his band for 2 hours he felt extremely lightheaded and felt like he was going to pass out he sat himself down he did not pass out. EMS arrived all vitals were stable. He previously had been noted to have heart rates in the 30s however his heart rate was in the 50s. He has no chest pain or palpitations. He denies fever chills numbness tingling or weakness. This has been worked up multiple times as an outpatient this has happened to him times. The thought is that he will likely get a pacemaker however it is unclear all when. Related Data Home Medications Medication Instructions Recorded Confirmed amlodipine 10 mg tablet 10 mg PO DAILY 12/30/19 12/01/21 atorvastatin 10 mg tablet 10 mg PO DAILY 12/30/19 12/01/21 hydrochlorothiazide 25 mg tablet 25 mg PO DAILY 12/30/19 12/01/21 levothyroxine 75 mcg tablet 75 mcg PO DAILY 12/30/19 12/01/21 (Synthroid) lisinopril 40 mg tablet 40 mg PO DAILY 12/30/19 12/01/21 omeprazole 20 mg capsule,delayed 20 mg PO DAILY 12/30/19 12/01/21 release sildenafil 100 mg tablet 50 mg PO PRN PRN Sexual Activity 12/30/19 12/01/21 Allergies Allergy/AdvReac Type Severity Reaction Status Date / Time No Known Drug Allergies Allergy Verified 09/17/22 21:57 Review of Systems Review of Systems Narrative: GENERAL: Denies chills, fatigue, malaise, fever, sweats, travel HEENT: Denies sinus pain, ear pain, sore throat, difficulty swallowing, neck pain RESPIRATORY: Denies dyspnea, cough, wheezing, hemoptysis, sputum. CARDIOVASCULAR: Denies chest pain, palpitations, orthopnea, edema GASTROINTESTINAL: Denies nausea, vomiting, abdominal pain, diarrhea, constipation, melena. : Denies dysuria, frequency, incontinence, hematuria, urinary retention, flank pain. MUSCULOSKELETAL: Denies weakness, joint pain, or bony pain SKIN: No rash, no erythema, no pruritus NEUROLOGIC: See HPI PSYCHIATRIC: No concerning psychosocial issues. 12 point review of systems is negative except for those stated above and HPI Patient History Surgical History No pertinent past surgical history Social History household members: spouse Smoking Status: Never smoker alcohol intake: never Smoking Status: Never smoker Substance Use Type: does not use Exam Initial Vital Signs Initial Vital Signs: Vital Signs Temperature 97.9 F 09/17/22 21:57 Pulse Rate 59 L 09/17/22 21:57 Respiratory Rate 25 H 09/17/22 21:57 Blood Pressure 154/71 H 09/17/22 21:57 Pulse Oximetry 99 09/17/22 21:57 Oxygen Delivery Method 09/17/22 21:57 GENERAL: Alert pleasant 77-year-old male and in no acute distress. HEENT: Head atraumatic,EOMI, pupils reactive, face symmetric, moist mucous membranes CARDIOVASCULAR: Regular rate and rhythm without murmurs, rubs or gallops. RESPIRATORY: Breath sounds equal bilaterally, no wheezes rales or rhonchi. ABDOMEN: Soft, nontender. Normoactive bowel sounds all 4 quadrants. No guar ding or rebound. EXTREMITIES: Normal range of motion, no clubbing or edema. Neurovascularly intact NEUROLOGICAL: Alert and oriented x4. Merry Go Round Operator strength equal bilaterally SKIN: Warm, dry, no laceration, no petechiae, no rashes or lesions. Course Orders Ordered: ED Orders 09/17/22 22:00 XR chest 1V Stat EKG-12 Lead Stat 09/17/22 22:20 Complete Blood Count AUTO DIFF Stat Comprehensive Metabolic Panel Stat Lipase Stat Magnesium Stat Partial Thromboplastin Time Stat Prothrombin Time INR Stat TSH [Thyroid Stimulating Hormone] Stat Troponin & CK Cardiac Panel Stat Vital Signs Vital signs: Vital Signs - 8 hr 09/17/22 22:38 09/17/22 22:39 09/17/22 22:39 Pulse Rate 62 54 L Respiratory Rate 15 13 Blood Pressure 116/62 Pulse Oximetry 99 99 09/17/22 23:00 09/17/22 23:00 09/17/22 23:30 Pulse Rate 76 Respiratory Rate 19 Blood Pressure 123/81 120/68 Pulse Oximetry 98 09/17/22 23:30 09/18/22 00:00 09/18/22 00:00 Pulse Rate 54 L 66 Respiratory Rate 11 L 20 Blood Pressure 141/73 H Pulse Oximetry 97 98 09/18/22 00:30 09/18/22 00:30 09/18/22 01:00 Pulse Rate 53 L Respiratory Rate 13 Blood Pressure 136/86 133/63 Pulse Oximetry 99 09/18/22 01:00 Pulse Rate 51 L Respiratory Rate 16 Blood Pressure Pulse Oximetry 98 MDM - Syncope Lab Data Result diagrams: 09/17/22 22:20 09/17/22 22:20 Labs: Lab Results 09/17/22 09/17/22 09/17/22 Range/Units 22:20 22:20 22:20 WBC 8.2 (4.5-11.0) X10^3/uL RBC 4.65 (4.5-5.9) X10^6/uL Hgb 11.7 L (13.5-17.5) g/dL Hct 36.2 L (41-53) % MCV 77.9 L (80-100) fL MCH 25.1 L (26-34) PG MCHC 32.2 (30-36) % RDW 17.3 H (11.6-14.8) % Plt Count 268 (150-400) X10^3/uL Neut % (Auto) 72.7 (50-75) % Lymph % (Auto) 15.3 L (25-40) % Kingman % (Auto) 9.2 (3-14) % Eos % (Auto) 2.1 (2-4) % Baso % (Auto) 0.7 (0-2) % Neut # (Auto) 6000 (8705-0453) /uL Lymph # (Auto) 1300 (9994-9829) /uL Kingman # (Auto) 800 (0-900) /uL Eos # (Auto) 200 (0-450) /uL Baso # (Auto) 100 (0-100) /uL PT 11.8 (10.1-12.7) SECONDS INR 1.0 (0.9-1.3) APTT 25 L (26-36) SECONDS Sodium 138 (137-145) mmol/L Potassium 3.9 (3.4-5.1) mmol/L Chloride 108 H (98-107) mmol/L Carbon Dioxide 21 L (22-32) mmol/L BUN 33 H (9-20) mg/dL Creatinine 1.62 H (0.66-1.25) mg/dL Estimated GFR 44 L (>60) mL/min BUN/Creatinine Ratio 20.4 (6-22) Glucose 101 (80-110) mg/dL Calcium 8.9 (8.4-10.2) mg/dL Magnesium 1.8 (1.6-2.3) mg/dL Total Bilirubin 0.3 (0.2-1.3) mg/dL AST 24 (17-59) IU/L ALT 22 (<50) IU/L Alkaline Phosphatase 72 (38-126) U/L Total Creatine Kinase 218 H (55-170) U/L CK-MB (CK-2) 3.89 H (<2.37) ng/mL CK-MB (CK-2) Rel Index 1.8 (1.5-5.0) % Troponin I 0.019 (0.01-0.034) ng/mL Total Protein 7.5 (6.3-8.2) g/dL Albumin 4.1 (3.5-5.0) g/dL Globulin 3.4 (1.7-4.1) g/dL Albumin/Globulin Ratio 1.2 (1.0-2.8) Lipase 111 (23-300) U/L TSH (0.47-4.68) uIU/mL 09/17/22 Range/Units 22:20 WBC (4.5-11.0) X10^3/uL RBC (4.5-5.9) X10^6/uL Hgb (13.5-17.5) g/dL Hct (41-53) % MCV (80-100) fL MCH (26-34) PG MCHC (30-36) % RDW (11.6-14.8) % Plt Count (150-400) X10^3/uL Neut % (Auto) (50-75) % Lymph % (Auto) (25-40) % Kingman % (Auto) (3-14) % Eos % (Auto) (2-4) % Baso % (Auto) (0-2) % Neut # (Auto) (4545-2491) /uL Lymph # (Auto) (2350-9022) /uL Kingman # (Auto) (0-900) /uL Eos # (Auto) (0-450) /uL Baso # (Auto) (0-100) /uL PT (10.1-12.7) SECONDS INR (0.9-1.3) APTT (26-36) SECONDS Sodium (137-145) mmol/L Potassium (3.4-5.1) mmol/L Chloride (98-107) mmol/L Carbon Dioxide (22-32) mmol/L BUN (9-20) mg/dL Creatinine (0.66-1.25) mg/dL Estimated GFR (>60) mL/min BUN/Creatinine Ratio (6-22) Glucose (80-110) mg/dL Calcium (8.4-10.2) mg/dL Magnesium (1.6-2.3) mg/dL Total Bilirubin (0.2-1.3) mg/dL AST (17-59) IU/L ALT (<50) IU/L Alkaline Phosphatase (38-126) U/L Total Creatine Kinase (55-170) U/L CK-MB (CK-2) (<2.37) ng/mL CK-MB (CK-2) Rel Index (1.5-5.0) % Troponin I (0.01-0.034) ng/mL Total Protein (6.3-8.2) g/dL Albumin (3.5-5.0) g/dL Globulin (1.7-4.1) g/dL Albumin/Globulin Ratio (1.0-2.8) Lipase (23-300) U/L TSH 5.90 H (0.47-4.68) uIU/mL Imaging Data Chest x-ray: Radiologist's Impression: Signed Patient: Martin Guevara MR#: [id number] : 1945 Acct:[id number] Age/Sex: 77 / M Date of Service: 09/17/22 Loc: ED Accession Number: [id number] ?? Procedure: XR chest 1V Ordering Provider: Philomena Kilgore D.O. PROCEDURE:? XR CHEST 1V ? INDICATIONS:? chest pain ? TECHNIQUE:? One view of the chest was acquired.? ? COMPARISON:? [facility], CR, XR CHEST 2V, 11/08/2019, 7:28. ? FINDINGS:? ? Surgical changes and devices:? None.? ? Lungs and pleura:? Lungs are clear.? No pleural effusions or pneumothorax.? ? Mediastinum:? Mediastinal contours appear normal.? Heart size is normal.? ? Bones and chest wall:? No suspicious bony lesions.? Overlying soft tissues appear unremarkable.? ? IMPRESSION:? Normal for age, source of current chest pain symptoms is not seen. ? ? Dictated by: Solo Ferreira M.D. on 09/17/2022 at 22:41 ? ? ECG Data Interpretation: Sinus rhythm artifact noted PVCs MDM Narrative Medical decision making narrative: Have been washing patient's monitor it is definitely sinus arrhythmia with PACs and PVCs but very irregular is I do not see a distinct SA or AV aristeo block. Cardiology notes from [facility] have been accessed by myself and reviewed there does appear to be high suspicion for significant degree of sinus node dysfunction causing his syncopal episodes. His have contacted [facility] I did not directly speak with Cardiology however transfer center did get in touch with on-call cardiology who will message his binding cementer french cord and they will follow-up with him next week. Patient has been completely hemodynamic stable here. Heart rates in the 50s. Blood pressure stable blood work is overall reassuring. Patient agrees with this plan. Discharge Plan Departure Patient Disposition: Home Clinical Impression: Sick sinus syndrome, Syncope Instructions: DI for Syncope in Adults (Fainting) Activity Restrictions/Additional Instructions: *You have been diagnosed with sick sinus syndrome, syncope *What to do: I have contacted [facility] your binding cementer french cord has received a message. I anticipate they will call you next week if you do not hear from them by Monday please call the office. *Continue to take medications as directed *Follow up with your primary care provider in 2-3 days or call [phone] *Return to ER if you should have recurrent episode of syncope chest pain palpitations or any new, worsening or concerning symptoms Prescriptions: No Action atorvastatin 10 mg Tablet 10 mg PO DAILY sildenafil 100 mg Tablet 50 mg PO PRN MDD 100mg PRN (Reason: Sexual Activity) Rx Instructions: at least one hour before sexual activity. Avoid grapefruit products levothyroxine [Synthroid] 75 mcg Tablet 75 mcg PO DAILY amlodipine 10 mg Tablet 10 mg PO DAILY omeprazole 20 mg Capsule,Delayed Release(Dr/Ec) 20 mg PO DAILY hydrochlorothiazide 25 mg Tablet 25 mg PO DAILY lisinopril 40 mg Tablet 40 mg PO DAILY Referrals: Vida Lozoya PA-C [Primary Care Provider] - Visit Report Forms: Patient Portal/API
[2022-09-18] VITALS: BP 141/73; PULSE 66; RESP 20; O2SAT 98
--- NOTE | 2022-09-18 | PC.NURSE ---
MD at bedside - family present
[2022-09-18 00:30] VITALS: BP 136/86; PULSE 53; RESP 13; O2SAT 99
--- NOTE | 2022-09-18 00:40 | PC.NURSE ---
MD at bedside - family present
[2022-09-18 01:00] VITALS: BP 133/63; PULSE 51; RESP 16; O2SAT 98
== END 2022-09-18 01:14 | disposition home or self-care (01) ==
PROVIDERS: Emergency Provider Emergency Medicine; Family Provider Physician Assistant; PCP Physician Assistant
DX: I49.5 Sick sinus syndrome (principal); R55 Syncope and collapse; R07.9 Chest pain, unspecified
CPT/HCPCS: 36415; 71045; 80053; 82550; 82553; 83690; 83735; 84443; 84484; 85025; 85610; 85730; 93010; 99284

== ENCOUNTER → 2023-10-14 12:11 | Outpatient (CLI) | payer MEDICARE, SELFPAY ==
--- NOTE | 2023-10-14 12:13 | DI.RAD.S_ITS ---
PROCEDURE: XR FOOT LT MIN 3V INDICATIONS: Left foot pain TECHNIQUE: 3 views of the foot were acquired. COMPARISON: [facility], CR, XR ANKLE LT MIN 3V, 10/14/2023, 12:15. FINDINGS: Bones: No fractures or dislocations. No suspicious bony lesions. Mild hallux valgus deformity is seen, with associated focal degenerative change of the 1st metatarsophalangeal joint. Milder degenerative changes are seen elsewhere, including along the Lisfranc joint. Plantar and Achilles calcaneal spurs are seen. Toe alignment abnormalities are seen. Soft tissues: No tibiotalar joint effusion. Achilles tendon appears normal. IMPRESSION: No iron acute plain film abnormality is identified. Mild hallux valgus deformity and degenerative changes are seen. Dictated by: Vernon Grijalva M.D. on 10/14/2023 at 11:51 Approved by: Vernon Grijalva M.D. on 10/14/2023 at 11:52
--- NOTE | 2023-10-14 12:13 | DI.RAD.S_ITS ---
PROCEDURE: XR ANKLE LT MIN 3V INDICATIONS: Left ankle pain TECHNIQUE: 3 views of the ankle were acquired. COMPARISON: [facility], , XR FOOT LT MIN 3V, 10/14/2023, 12:15. FINDINGS: Bones: No acute appearing fractures or dislocations. There is a remote appearing fracture fragment seen distal to the medial malleolus. Ankle mortise is normally aligned. No suspicious bony lesions. The talar dome demonstrates no iron abnormality. Age-appropriate bony degenerative changes are seen. Plantar and Achilles calcaneal spurs are seen. Soft tissues: Soft tissue swelling is seen laterally. Atherosclerotic calcification is noted. IMPRESSION: Soft tissue swelling is seen, without an acute bony abnormality seen by plain film. If there is point tenderness (or other clinical suspicion for a fracture not seen on these images) then a dedicated CT or a short-term followup plain film series could be considered for further evaluation, as clinically appropriate. Dictated by: Vernon Grijalva M.D. on 10/14/2023 at 11:48 Approved by: Vernon Grijalva M.D. on 10/14/2023 at 11:50
== END ==
PROVIDERS: Family Provider Physician Assistant; PCP Physician Assistant; Referring Provider Registered Nurse; Visit Provider Registered Nurse
DX: M20.12 Hallux valgus (acquired), left foot (principal); M25.572 Pain in left ankle and joints of left foot; M79.89 Other specified soft tissue disorders; M77.32 Calcaneal spur, left foot
CPT/HCPCS: 73610; 73630

== ENCOUNTER → 2025-02-21 11:50 | Outpatient (CLI) | payer MEDICARE, SELFPAY ==
--- NOTE | 2025-02-21 11:55 | DI.RAD.S_ITS ---
PROCEDURE: XR HAND RT MIN 3V INDICATIONS: 3rd finger swollen tender DIP and PIP joint TECHNIQUE: 3 views of the hand(s) acquired. COMPARISON: None. FINDINGS: Bones: No fractures or dislocations. Advanced degenerative changes are noted within the trapezium metacarpal diffusely throughout the interphalangeal joints, most notably within the 1st IP and 2nd through 5th DIP joints. These changes are marked by pronounced joint space loss, marginal osteophytosis, subchondral sclerosis and marginal erosive change. Carpal bones are normally aligned. No suspicious bony lesions. Soft tissues: No suspicious soft tissue calcifications. IMPRESSION: Advanced polyarticular arthropathy as above, most notably within the TMC, 1st IP and 2nd through 5th DIP joints. No evidence of acute osseous abnormality. Dictated by: Santiago Ordoñez M.D. on 02/22/2025 at 22:34 Approved by: Santiago Ordoñez M.D. on 02/22/2025 at 22:45
[2025-02-21 12:57] LABS: Add Manual Diff / Slide Review NO; Basophils Absolute Auto 100 /uL (0-100); Basophils Percent Auto 0.9 % (0-2); Eosinophils Absolute Auto 200 /uL (0-450); Eosinophils Percent Auto 3.4 % (2-4); Hematocrit 38.5 % (41-53); Hemoglobin 12.5 g/dL (13.5-17.5); Lymphocytes Absolute Auto 2200 /uL (1100-4500); Lymphocytes Percent Auto 31.2 % (25-40); Mean Corpuscular HGB Conc 32.5 % (30-36); Mean Corpuscular Hemoglobin 26.5 PG (26-34); Mean Corpuscular Volume 81.5 fL (80-100); Monocytes Absolute Auto 900 /uL (0-900); Monocytes Percent Auto 11.9 % (3-14); Neutrophils Absolute Auto 3800 /uL (1500-7000); Neutrophils Percent Auto 52.6 % (50-75); Platelet Count 270 X10^3/uL (150-400); Red Blood Cell Count 4.73 X10^6/uL (4.5-5.9); Red Cell Distribution Width 15.8 % (11.6-14.8); White Blood Cell Count 7.1 X10^3/uL (4.5-11.0)
[2025-02-21 13:17] LABS: Uric Acid 9.1 mg/dL (3.5-8.5)
== END ==
PROVIDERS: Family Provider Physician Assistant; PCP Physician Assistant; Referring Provider Nurse Practitioner Family; Visit Provider Nurse Practitioner Family
DX: M19.041 Primary osteoarthritis, right hand (principal); M25.40 Effusion, unspecified joint
CPT/HCPCS: 36415; 73130; 84550; 85025